=== PATIENT | female | born 1950 | race Caucasian/White ===

== ENCOUNTER 2017-04-24 14:15 | Inpatient (IN) | payer MEDICARE, OTHER ==
[~2017-04-24] VITALS: Ht 162.6 cm; Wt 86.0 kg
[~2017-04-24 14:15] MED LIST: ALBU1.25 IH; ALBU25PO2 MC; CARI350T14 PO; ESOM40CA PO; FLUT1DIS5 IH; GABA600T2 PO; MELO15TA23 PO; ONDA4TAB10 PO; PRED50TA PO; ROFL500T7 PO; TIOT18CA IH; VENL150C PO; mucinex
[2017-04-24] MEDS ORDERED: IPRATRPIUM/ALBUTEROL 0.5/2.5MG 3 ML NEBU. ONE (14:32)
[2017-04-24] MEDS ORDERED: IPRATRPIUM/ALBUTEROL 0.5/2.5MG 3 ML NEBU. NEB ONE ×2 (15:00→15:45)
[2017-04-24 15:39] LABS: BASO # 0.1 x10^3/uL (0.0-0.2); BASO % 1 % (0-3); EOS # 0.4 x10^3/uL (0.0-0.7); EOS % 5 % (0-3); HEMATOCRIT 41.7 % (36.0-47.0); HEMOGLOBIN 14.2 g/dL (12.0-15.5); LYMPH # 1.6 x10^3/uL (1.0-4.8); LYMPH % 22 % (24-48); MEAN CORPUSCULAR HEMOGLOBIN 31 pg (25-35); MEAN CORPUSCULAR HGB CONC 34 g/dL (31-37); MEAN CORPUSCULAR VOLUME 92 fL (79-100); MONO # 0.4 x10^3/uL (0.0-1.1); MONO % 6 % (0-9); NEUT # 4.6 x10^3uL (1.8-7.7); NEUT % 66 % (31-73); PLATELET COUNT 242 x10^3/uL (140-400); RED BLOOD COUNT 4.53 x10^6/uL (3.50-5.40); RED CELL DISTRIBUTION WIDTH 13.6 % (11.5-14.5)
[2017-04-24] MEDS ORDERED: IOHEXOL 300 MG/ML 75 ML VIAL. IV ONE (15:45)
[2017-04-24 16:02] LABS: ALBUMIN 3.9 g/dL (3.4-5.0); CALCIUM 9.9 mg/dL (8.5-10.1); CREATININE 0.8 mg/dL (0.6-1.0); GFR 71.8; TOTAL BILIRUBIN 0.4 mg/dL (0.2-1.0); TOTAL PROTEIN 7.7 g/dL (6.4-8.2)
--- NOTE | 2017-04-24 16:37 | RAD ---
Indication: Rib fracture. Pleural effusion. Technique: CT chest with 75 mL of Omnipaque 300 with multiplanar reformats. Comparison: Previous CT from 05/29/2016 Findings: Neck bases clear. No axillary, mediastinal or hilar adenopathy. Heart is normal in size. No pericardial or pleural effusion. Trace left pleural effusion noted with passive atelectasis of the adjacent lung parenchyma. Diffuse upper lobe predominant emphysema is changes noted. 5 mm nodule seen in the right lower lobe, stable when compared to previous CT from 2011 and is benign. No pneumothorax. Subsegmental atelectasis seen in the bilateral lung bases. Two 5-mm nodules seen in the right lower lobe (series 4 image 50), stable when compared to previous study from 05/29/2016. Visualized sections through the liver, adrenals, pancreas and upper kidneys are within normal limits. Spleen is mildly enlarged measuring 14 cm. Status post cholecystectomy. Note made of splenule. Nondisplaced fracture of the left lateral sixth, seventh, eighth rib noted Impression: 1. Trace left pleural effusion. 2. Pulmonary nodules in the right lower lobe stable when compared to previous CT. However, follow-up CT chest in 6 months recommended. 3. Nondisplaced Left sixth, seventh and eighth rib fractures PQRS Compliance Statement: One or more of the following individualized dose reduction techniques were utilized for this examination: 1. Automated exposure control 2. Adjustment of the mA and/or kV according to patient size 3. Use of iterative reconstruction technique
[2017-04-24 17:42] LABS: BGAS PH 7.41 (7.35-7.45)
--- NOTE | 2017-04-24 17:47 | PHYS DOC ---
Past History Past Medical History: Anxiety, COPD, Fibromyalgia, GERD, High Cholesterol Past Surgical History: Cholecystectomy, Hysterectomy Smoking: Non-smoker Alcohol Use: None Drug Use: None Adult General Chief Complaint Chief Complaint: SHORTNESS OF BREATH HPI HPI 66-year-old female patient brought in by EMS because of shortness of breath and rib pain. Patient has history of COPD on 3 L of home oxygen at night and PRN and had an accidental fall from a standing position on April 19 with pain in left side of her chest. Patient was seen in her primary care physician office the next day and had chest x-ray and treated for chest wall injury. Patient was seen by her primary care physician today because of increasing shortness of breath and pain and had another x-ray that showed pleural effusion. Primary care physician called Dr Allen the on-call hospitalist for direct admission and he recommended patient comes to ER for evaluation. Patient denies fever and chills and complaining of severe pain in her chest that doesn't get better with hydrocodone. Review of Systems Review of Systems Constitutional: Denies fever or chills [] Eyes: Denies change in visual acuity, redness, or eye pain [] HENT: Denies nasal congestion or sore throat [] Respiratory: Reports cough and shortness of breath [] Cardiovascular: No additional information not addressed in HPI [] GI: Denies abdominal pain, nausea, vomiting, bloody stools or diarrhea [] : Denies dysuria or hematuria [] Musculoskeletal: Denies back pain or joint pain [] Integument: Denies rash or skin lesions [] Neurologic: Denies headache, focal weakness or sensory changes [] Endocrine: Denies polyuria or polydipsia [] All other systems were reviewed and found to be within normal limits, except as documented in this note. Current Medications Current Medications Current Medications Medications (Trade) Dose Ordered Sig/Tereso Start Time Stop Time Status Last Admin Dose Admin Albuterol/ Ipratropium (Duoneb) 3 ml 1X ONCE 04/24/17 15:45 04/24/17 15:46 DC Fentanyl Citrate (Fentanyl 2ml Vial) 50 mcg 1X ONCE 04/24/17 15:50 04/24/17 15:51 DC 04/24/17 15:43 50 MCG Iohexol (Omnipaque 300 Mg/ml) 75 ml 1X ONCE 04/24/17 15:45 04/24/17 15:54 DC 04/24/17 15:50 75 ML Allergies Allergies Allergies Coded Allergies Type Severity Reaction Last Updated Verified No Known Drug Allergies 06/10/13 No Physical Exam Physical Exam General:milddistress, non-toxic appearance. [] HENT: Normocephalic, atraumatic, bilateral external ears normal, oropharynx moist, no oral exudates, nose normal. [] Eyes: PERRLA, EOMI, conjunctiva normal, no discharge. [] Neck: Normal range of motion, no tenderness, supple, no stridor. [] Cardiovascular:Heart rate regular rhythm, no murmur [] Lungs & Thorax: Decrease of breath sounds with mild rhonchi, left side chest wall tenderness without crepitation or subcutaneous emphysema, Abdomen: Bowel sounds normal, soft, no tenderness, no masses, no pulsatile masses. [] Skin: Warm, dry, no erythema, no rash. [] Back: No tenderness, no CVA tenderness. [] Extremities: No tenderness, no cyanosis, no clubbing, ROM intact, no edema. [] Neurologic: Alert and oriented X 3, normal motor function, normal sensory function, no focal deficits noted. [] Psychologic: Affect normal, judgement normal, mood normal. [] Current Patient Data Vital Signs Vital Signs Date Time Temp Pulse Resp B/P (MAP) Pulse Ox O2 Delivery O2 Flow Rate FiO2 04/24/17 15:43 20 95 04/24/17 14:35 Nasal Cannula 2.0 Lab Results Laboratory Tests Test 04/24/17 14:50 White Blood Count 7.0 x10^3/uL (4.0-11.0) Red Blood Count 4.53 x10^6/uL (3.50-5.40) Hemoglobin 14.2 g/dL (12.0-15.5) Hematocrit 41.7 % (36.0-47.0) Mean Corpuscular Volume 92 fL (79-100) Mean Corpuscular Hemoglobin 31 pg (25-35) Mean Corpuscular Hemoglobin Concent 34 g/dL (31-37) Red Cell Distribution Width 13.6 % (11.5-14.5) Platelet Count 242 x10^3/uL (140-400) Neutrophils (%) (Auto) 66 % (31-73) Lymphocytes (%) (Auto) 22 % (24-48) L Monocytes (%) (Auto) 6 % (0-9) Eosinophils (%) (Auto) 5 % (0-3) H Basophils (%) (Auto) 1 % (0-3) Neutrophils # (Auto) 4.6 x10^3uL (1.8-7.7) Lymphocytes # (Auto) 1.6 x10^3/uL (1.0-4.8) Monocytes # (Auto) 0.4 x10^3/uL (0.0-1.1) Eosinophils # (Auto) 0.4 x10^3/uL (0.0-0.7) Basophils # (Auto) 0.1 x10^3/uL (0.0-0.2) Sodium Level 143 mmol/L (136-145) Potassium Level 4.0 mmol/L (3.5-5.1) Chloride Level 100 mmol/L (98-107) Carbon Dioxide Level 35 mmol/L (21-32) H Anion Gap 8 (6-14) Blood Urea Nitrogen 14 mg/dL (7-20) Creatinine 0.8 mg/dL (0.6-1.0) Estimated GFR (Cockcroft-Gault) 71.8 BUN/Creatinine Ratio 18 (6-20) Glucose Level 103 mg/dL (70-99) H Lactic Acid Level 1.6 mmol/L (0.4-2.0) Calcium Level 9.9 mg/dL (8.5-10.1) Total Bilirubin 0.4 mg/dL (0.2-1.0) Aspartate Amino Transferase (AST) 27 U/L (15-37) Alanine Aminotransferase (ALT) 28 U/L (14-59) Alkaline Phosphatase 99 U/L (46-116) Creatine Kinase 129 U/L (26-192) Creatine Kinase MB (Mass) 0.7 ng/mL (0.0-3.6) Creatine Kinase MB Relative Index 0.5 % (0-4) Troponin I Quantitative < 0.017 ng/mL (0-0.055) JS-Vbl-N-Type Natriuretic Peptide 92 pg/mL (0-124) Total Protein 7.7 g/dL (6.4-8.2) Albumin 3.9 g/dL (3.4-5.0) Albumin/Globulin Ratio 1.0 (1.0-1.7) EKG EKG [] Radiology/Procedures Radiology/Procedures [] Course & Med Decision Making Course & Med Decision Making Pertinent Labs and Imaging studies reviewed. (See chart for details) Evaluation of patient in ER showed 66-year-old male patient with history of COPD on home oxygen and a fall with rib fracture centrum primary care physician office because of pleural effusion. Patient had chest wall tenderness and decrease of air movement in bilateral lung. CT of chest showed nondisplaced fracture of left rib #6 and 7 and 8 with a small pleural effusion. ABG was unremarkable. Dr. Allen the on-call hospitalist was informed at 1743 and agreed with plan of care and admission of the patient. [] Dragon Disclaimer Dragon Disclaimer This electronic medical record was generated, in whole or in part, using a voice recognition dictation system. Departure Departure: Impression: Primary Impression: Multiple fractures of ribs of left side Additional Impressions: Dyspnea History of COPD Disposition: 09 ADMITTED INPATIENT (At 1743) Admitting Physician: Adela Allen Condition: IMPROVED Referrals: KEISHA PRICE DO (PCP) Problem Qualifiers PAT CLARKE MD Apr 24, 2017 17:47
[2017-04-24] MEDS ORDERED: methylPREDNISolone SOD SUCC PF 125 MG/2 ML VIAL. IV ONE (18:00)
[2017-04-24 21:14] VITALS: BP 140/70
[2017-04-24 21:28] VITALS: BP 140/70
[2017-04-24] MEDS: LIDOCAINE (700MG/PATCH) PATCH. TD SCH (21:49)
[2017-04-24] MEDS: oxyCODONE IR 5 MG TABLET PO PRN (21:50)
[2017-04-24 23:21] VITALS: BP 131/82
[2017-04-25] MEDS ORDERED: MELO15TA23 PO (01:16)
[2017-04-25] MEDS ORDERED: VENL75TA PO ×2 (01:16)
[2017-04-25] MEDS ORDERED: HYDR-2758 PO (01:16)
[2017-04-25] MEDS ORDERED: HYDR200T5 PO (01:16)
[2017-04-25] MEDS ORDERED: ALBU90AE IH (01:16)
[2017-04-25] MEDS ORDERED: FLUT1DIS5 IH (01:16)
[2017-04-25] MEDS ORDERED: CALC500T30 PO (01:16)
[2017-04-25] MEDS ORDERED: ROFL500T7 PO (01:16)
[2017-04-25] MEDS ORDERED: OMEG1CAP6 PO (01:16)
[2017-04-25] MEDS ORDERED: ALBU2.5V5 NEB (01:16)
[2017-04-25] MEDS ORDERED: CARI350T PO ×2 (01:16)
[2017-04-25] MEDS ORDERED: MONT10TA9 PO (01:16)
[2017-04-25] MEDS ORDERED: GUAI600T47 PO (01:16)
[2017-04-25] MEDS ORDERED: TIOT18CA IH (01:16)
[2017-04-25] MEDS ORDERED: GABA-586 PO (01:16)
[2017-04-25] MEDS ORDERED: PANT40TA3 PO (01:16)
[2017-04-25] MEDS ORDERED: AMIT25TA PO (01:16)
[2017-04-25] MEDS: oxyCODONE IR 5 MG TABLET PO PRN ×5 (01:54→18:42)
[2017-04-25 05:05] VITALS: BP 108/72
[2017-04-25 06:40] LABS: HEMATOCRIT 40.6 % (36.0-47.0); RED BLOOD COUNT 4.45 x10^6/uL (3.50-5.40); RED CELL DISTRIBUTION WIDTH 13.2 % (11.5-14.5); WHITE BLOOD COUNT 6.6 x10^3/uL (4.0-11.0)
[2017-04-25] MEDS ORDERED: ONDANSETRON ODT 4 MG TAB.RAPDIS PO PRN (06:45)
[2017-04-25] MEDS ORDERED: NON FORMULARY ITEM (Albuterol Sulfate (Proair Respiclick) 1 PUFF) IH PRN (06:45)
[2017-04-25 06:51] LABS: ALBUMIN 3.6 g/dL (3.4-5.0); ALBUMIN/GLOBULIN RATIO 0.9 (1.0-1.7); CALCIUM 9.8 mg/dL (8.5-10.1); CREATININE 0.7 mg/dL (0.6-1.0); GFR 83.7; POTASSIUM 4.2 mmol/L (3.5-5.1); TOTAL BILIRUBIN 0.3 mg/dL (0.2-1.0); TOTAL PROTEIN 7.4 g/dL (6.4-8.2)
[2017-04-25] MEDS ORDERED: ALBUTEROL SULFATE 2.5 MG/3 ML NEBU. NEB PRN (07:30)
[2017-04-25] MEDS: OMEGA-3 FATTY ACIDS/FISH OIL 1,000 MG CAPSULE. PO SCH ×3 (08:23→20:29)
[2017-04-25] MEDS: CALCIUM CARBONATE 500 MG TABLET PO SCH (08:24)
[2017-04-25] MEDS: PANTOPRAZOLE 40 MG TABLET. PO SCH (08:24)
[2017-04-25] MEDS: HYDROXYCHLOROQUINE 200 MG TABLET PO SCH ×2 (08:25→20:32)
[2017-04-25] MEDS: MONTELUKAST 10 MG TABLET. PO SCH (08:25)
[2017-04-25] MEDS: AMITRIPTYLINE HCL 25 MG TABLET PO SCH ×3 (08:26→20:30)
[2017-04-25] MEDS: ROFLUMILAST 500 MCG TABLET PO SCH (08:27)
[2017-04-25] MEDS: VENLAFAXINE 75 MG TABLET. PO SCH ×2 (08:28→20:29)
[2017-04-25] MEDS ORDERED: NON FORMULARY ITEM (Tiotropium Bromide (Spiriva) 18 MCG) IH SCH (09:00)
[2017-04-25] MEDS ORDERED: GABAPENTIN 300 MG CAPSULE. PO SCH ×2 (09:00→13:00)
[2017-04-25] MEDS ORDERED: CARISOPRODOL 350 MG TABLET PO SCH (09:00)
[2017-04-25] MEDS ORDERED: NON FORMULARY ITEM (Fluticasone/Salmeterol (Advair 500-50 Diskus) 1 PUFF) IH SCH (09:00)
[2017-04-25] MEDS ORDERED: MELOXICAM 15 MG TABLET. PO SCH (09:00)
[2017-04-25] MEDS: BUDESONIDE 0.5 MG/2 ML NEBU NEB SCH ×2 (10:15→21:21)
[2017-04-25] MEDS: IPRATRPIUM/ALBUTEROL 0.5/2.5MG 3 ML NEBU. NEB SCH ×4 (10:15→21:21)
[2017-04-25 10:27] VITALS: BP 132/87
[2017-04-25] MEDS: HYDROcodone/APAP 5/325MG 1 TAB TABLET PO PRN (12:21)
[2017-04-25] MEDS ORDERED: GABAPENTIN 100 MG CAPSULE. PO SCH (13:00)
[2017-04-25 14:34] VITALS: BP 123/67
--- NOTE | 2017-04-25 15:46 | HP ---
ADMIT DATE: 04/24/2017 HISTORY OF PRESENT ILLNESS: The patient is a 66-year-old female patient, who lives with her and who apparently fell about a week ago at home. She was seen by her primary care physician about 6 days ago and an x-ray was done and on Sunday she was told to make an appointment to see her primary care physician. She saw her yesterday and apparently her x-ray showed that she has left side rib fracture as well as what seems to be pleural effusion versus hemothorax. The patient was complaining of severe pain and her primary care physician contacted me stating that she is having more shortness of breath and she seemed to be somewhat lethargic and therefore, I recommended that the patient should be seen at the Emergency Room first to see whether she is retaining carbon dioxide and she might require intubation. She was actually evaluated there and her blood gases showed that her pH was normal at 7.41, pCO2 of 53, pO2 of 71, and decision was made to admit her for pain control. PAST MEDICAL HISTORY: Significant for chronic obstructive pulmonary disease, bronchial asthma, fibromyalgia, and nephrolithiasis. PAST SURGICAL HISTORY: Significant for arthroscopic surgery of left knee, tonsillectomy, cholecystectomy, total abdominal hysterectomy and bilateral salpingo-oophorectomy, colonoscopy and polypectomy. ALLERGIES: She has no known drug allergies. MEDICATIONS: She is currently on following medication: Albuterol sulfate 1 puff every 4 to 6 hours, albuterol sulfate 2.5 mg 3 mL by nebulizer every 4 to 6 hours, amitriptyline 25 mg 3 times a day, calcium carbonate 500 mg 3 times a day, Soma 350 mg daily and 700 mg at bedtime. She is on Advair Diskus 500/50 one puff twice a day, guaifenesin 1200 mg twice a day, hydrocodone/APAP 5/325 one tablet every 6 hours. She is on hydroxychloroquine sulfate 200 mg twice a day, Meloxicam 50 mg daily, montelukast sodium 10 mg daily, omega-3 fatty acid one p.o. t.i.d., ondansetron 4 mg p.o. q.6 hourly p.r.n., Protonix 40 mg daily, Daliresp 500 mcg tablet once a day, Spiriva HandiHaler 1 inhalation once a day, venlafaxine 150 mg once a day, 75 mg p.o. at bedtime. FAMILY HISTORY: She has 1 brother and 2 sisters younger and healthy. Her mother is still alive at the age of 87, has hypertension. She does not know her biological father. SOCIAL HISTORY: She is , has a daughter and a son. She is an ex-smoker, quit in 2002. She does drink alcohol or use any recreational drugs. 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 REVIEW OF SYSTEMS: The patient denied any blurring of vision, cataract, glaucoma or macular degeneration. Denied any earache, tinnitus or sensorineural deafness. Denied any nosebleeds, stuffy nose or postnasal drip. Denied any sore throat, sore tongue, toothache, hoarseness of voice or difficulty swallowing. Denied any nausea, vomiting, diarrhea or constipation. Denied any hematemesis, melena or hematochezia. Denied any dysuria, frequency or hematuria. Did complain of chest pain. She normally has shortness of breath, but denied any orthopnea, paroxysmal nocturnal dyspnea. Denied any cough, phlegm or hemoptysis. Denied any chills, rigors or fever. Denied any dizziness, lightheadedness, or vertigo. PHYSICAL EXAMINATION: GENERAL: On arrival to the Emergency Room, she looked well and was no apparent respiratory distress. She was pale, but no jaundice, cyanosis, or thyromegaly. No jugular venous distention. No limb edema. VITAL SIGNS: Her heart rate was 95, blood pressure was 138/73, temperature was 98.5, respiratory rate was 22 and oxygen saturation was 97% on 3 liters of oxygen. HEAD, EYES, EARS, NOSE AND THROAT: Showed normocephalic, atraumatic. NECK: Supple. HEART: Showed normal first and second sounds. No gallop, rub or murmur. CHEST: Clear to auscultation. No crepitation or rhonchi. ABDOMEN: Distended, soft, nontender. No guarding or rigidity. No organomegaly. All hernial orifice intact. Bowel sounds normal. NEUROLOGIC: She was awake, alert, responding appropriately. Cranial nerves intact. EXTREMITIES: She moves extremities without difficulty. She ambulates without assistance or assistive devices. LABORATORY DATA: On arrival to the Emergency Room showed a pH of 7.41, pCO2 of 53, pO2 of 71, bicarbonate 34, and oxygen saturation was 94% on FiO2 of 32%. Her white cell count was 7000, hemoglobin 14, hematocrit 42, MCV 92, and platelet count 242,000 with normal manual differential. Her chemistry showed a serum sodium 143, potassium 4, chloride 100, bicarbonate 35, anion gap of 8, BUN 14, creatinine 0.8, estimated GFR was 71 mL per minute. Her glucose was 103, calcium was 9.9. Total bilirubin, AST, ALT, alkaline phosphatase were normal. Her total protein was 7.7, albumin was 3.9. She did have CT scan of the chest with contrast, which showed that the patient has trace left pleural effusion, pulmonary nodule in the right lower lobe, stable when compared to previous CT scan. However, followup CT scan in 6 months is recommended. She has nondisplaced left 6th, 7th and 8th rib fractures. IMPRESSION: In summary, this is a 66-year-old female patient, who was admitted with fall, severe left-sided chest pain due to fracture of her left 6th, 7th, and 8th ribs. She has also COPD/bronchial asthma as well as fibromyalgia. PLAN: To continue with all her medication. Continue with pain management. We added Lidoderm patch. We will continue with SCDs for DVT prophylaxis. I will add also incentive spirometry and follow her closely. CHRISTINA ALAS MD DR: STACY/manjinder JOB#: [id number] / [id number]
[2017-04-25 19:36] VITALS: BP 103/62
[2017-04-25] MEDS: LIDOCAINE (700MG/PATCH) PATCH. TD SCH (20:29)
[2017-04-25] MEDS: MELOXICAM 15 MG TABLET. PO SCH (20:30)
[2017-04-25] MEDS: CARISOPRODOL 350 MG TABLET PO SCH (20:30)
[2017-04-25] MEDS: GABAPENTIN 300 MG CAPSULE. PO SCH ×2 (20:32→21:00)
[2017-04-25] MEDS ORDERED: HYDROmorphone PF 1 MG/ML DISP.SYRIN IV PRN (21:30)
[2017-04-25 22:00] VITALS: BP 111/75
--- NOTE | 2017-04-26 01:56 | PN ---
DATE: 04/25/2017 SUBJECTIVE: The patient is sitting propped up in bed, in no apparent distress. She continued to be complaining of pain, particularly with the movement. She is obviously in much less pain when she is in bed; however, she is able to ambulate and has been able to walk to the bathroom and back. The Lidoderm patch apparently is helping pain. I did start her on oxycodone and continued with all her other medications. PHYSICAL EXAMINATION: GENERAL: When I examined her this afternoon, she looked well and was clearly in no apparent respiratory distress, pale, but no jaundice, cyanosis, or thyromegaly. No jugular venous distension. No limb edema. VITAL SIGNS: Her heart rate was 94, blood pressure was 125/79, temperature was 98.5, respiratory rate was 18 and oxygen saturation was 96% on 3 liters of oxygen by nasal cannula. HEAD, EYES, EARS, NOSE AND THROAT: Showed normocephalic, atraumatic. NECK: Supple. HEART: Showed normal first and second heart sounds with no gallop, rub or murmur. CHEST: Clear to auscultation. No crepitation or rhonchi. ABDOMEN: Distended, soft, nontender. No guarding or rigidity. No organomegaly. Hernial orifice intact. Bowel sounds normal. NEUROLOGIC: She was awake, alert, responding appropriately. Cranial nerves intact. She moves extremities without difficulty. In fact, she was able to ambulate from the bed to the bathroom and back. Her intake over the last 24 hours was incompletely recorded. LABORATORY DATA: This morning showed a serum sodium 139, potassium 4.2, chloride 100, bicarbonate 31, anion gap of 8, BUN 16, creatinine 0.7, estimated GFR was 84 mL per minute. Her glucose was 142, calcium was 9.8. Total bilirubin, AST, ALT, alkaline phosphatase were normal. Total protein was 7.4, albumin 3.6. White cell count was 6600, hemoglobin 14, hematocrit 40, MCV 91, and platelet count 271,000. PLAN To continue with all her current medications. Continue with pain management. Continue with physical and occupational therapy. CHRISTINA ALAS MD DR: STACY/manjinder JOB#: [id number] / [id number]
[2017-04-26] MEDS: oxyCODONE IR 5 MG TABLET PO PRN ×3 (02:15→16:10)
[2017-04-26 02:16] VITALS: BP 113/77
[2017-04-26] MEDS: HYDROcodone/APAP 5/325MG 1 TAB TABLET PO PRN (05:19)
[2017-04-26 05:40] VITALS: BP 137/75
[2017-04-26] MEDS: IPRATRPIUM/ALBUTEROL 0.5/2.5MG 3 ML NEBU. NEB SCH ×4 (05:51→20:44)
[2017-04-26] MEDS: PANTOPRAZOLE 40 MG TABLET. PO SCH (07:42)
[2017-04-26 10:33] VITALS: BP 113/66
[2017-04-26] MEDS: BUDESONIDE 0.5 MG/2 ML NEBU NEB SCH ×2 (10:48→20:44)
[2017-04-26] MEDS: CALCIUM CARBONATE 500 MG TABLET PO SCH (11:29)
[2017-04-26] MEDS: HYDROXYCHLOROQUINE 200 MG TABLET PO SCH ×2 (11:29→21:03)
[2017-04-26] MEDS: VENLAFAXINE 75 MG TABLET. PO SCH ×2 (11:30→20:50)
[2017-04-26] MEDS: MONTELUKAST 10 MG TABLET. PO SCH (11:30)
[2017-04-26] MEDS: GABAPENTIN 300 MG CAPSULE. PO SCH ×4 (11:30→20:48)
[2017-04-26] MEDS: OMEGA-3 FATTY ACIDS/FISH OIL 1,000 MG CAPSULE. PO SCH ×3 (11:30→20:50)
[2017-04-26] MEDS: AMITRIPTYLINE HCL 25 MG TABLET PO SCH ×3 (11:30→20:50)
[2017-04-26] MEDS: ROFLUMILAST 500 MCG TABLET PO SCH (11:31)
[2017-04-26 14:37] VITALS: BP 110/67
[2017-04-26 17:59] VITALS: BP 121/73
[2017-04-26] MEDS: oxyCODONE ER 10 MG TAB.ER.12H PO SCH (20:49)
[2017-04-26] MEDS: CARISOPRODOL 350 MG TABLET PO SCH (20:50)
[2017-04-26] MEDS: MELOXICAM 15 MG TABLET. PO SCH (20:52)
[2017-04-26 21:00] VITALS: BP 96/54
[2017-04-26] MEDS ORDERED: LIDOCAINE (700MG/PATCH) PATCH. TD SCH (21:00)
--- NOTE | 2017-04-26 23:56 | PN ---
DATE: 04/26/2017 SUBJECTIVE: The patient is resting slightly propped up in bed, in no apparent distress. She continued to complain of severe left-sided chest pain, although she manages to walk to the bathroom. PHYSICAL EXAMINATION: GENERAL: When I examined her, she looked pale, but no jaundice, cyanosis, or thyromegaly. No jugular venous distension. No limb edema. VITAL SIGNS: Her heart rate was 99, blood pressure was 110/67, temperature was 98.4, respiratory rate 20, and oxygen saturation was 92% on 3-1/2 liters of oxygen. The rest of clinical examination is unremarkable and has not really changed. Her intake was 2400, no output was recorded. LABORATORY WORK: As of this morning showed a BUN of 16, creatinine 0.7. Her white cell count was 6600, hemoglobin 14, hematocrit 41, MCV 91, and platelet count 271,000. ASSESSMENT: 1. Fall with left 7th, 8th, 9th rib fracture. 2. Chronic obstructive pulmonary disease/bronchial asthma. 3. Fibromyalgia. 4. Osteoporosis and osteoarthritis. PLAN: My plan is to start her on OxyContin 10 mg twice a day and simplify the regimen, give only OxyIR 5 mg every 3 hours as needed for pain and increase also her on Neurontin to 600 mg 4 times a day. We will obviously have to be careful and hold the medication if she is lethargic, unresponsive or unconscious. We will continue obviously with physical and occupational therapy. CHRISTINA ALAS MD DR: STACY/manjinder JOB#: [id number] / [id number]
[2017-04-27] MEDS: oxyCODONE IR 5 MG TABLET PO PRN ×4 (05:28→17:31)
[2017-04-27 05:29] VITALS: BP 111/72
[2017-04-27] MEDS: IPRATRPIUM/ALBUTEROL 0.5/2.5MG 3 ML NEBU. NEB SCH ×3 (05:43→15:18)
[2017-04-27 06:37] LABS: HEMATOCRIT 36.7 % (36.0-47.0); HEMOGLOBIN 12.7 g/dL (12.0-15.5); RED BLOOD COUNT 3.94 x10^6/uL (3.50-5.40); RED CELL DISTRIBUTION WIDTH 13.5 % (11.5-14.5)
[2017-04-27 06:42] LABS: ALBUMIN 3.3 g/dL (3.4-5.0); CALCIUM 8.7 mg/dL (8.5-10.1); CREATININE 0.8 mg/dL (0.6-1.0); GFR 71.8; POTASSIUM 4.2 mmol/L (3.5-5.1); TOTAL BILIRUBIN 0.3 mg/dL (0.2-1.0); TOTAL PROTEIN 6.5 g/dL (6.4-8.2)
[2017-04-27] MEDS: PANTOPRAZOLE 40 MG TABLET. PO SCH (07:56)
[2017-04-27] MEDS: GABAPENTIN 300 MG CAPSULE. PO SCH ×3 (08:20→17:30)
[2017-04-27] MEDS: OMEGA-3 FATTY ACIDS/FISH OIL 1,000 MG CAPSULE. PO SCH ×2 (08:20→13:31)
[2017-04-27] MEDS: HYDROXYCHLOROQUINE 200 MG TABLET PO SCH (08:21)
[2017-04-27] MEDS: CALCIUM CARBONATE 500 MG TABLET PO SCH (08:21)
[2017-04-27] MEDS: MONTELUKAST 10 MG TABLET. PO SCH (08:21)
[2017-04-27] MEDS: oxyCODONE ER 10 MG TAB.ER.12H PO SCH (08:21)
[2017-04-27] MEDS: ROFLUMILAST 500 MCG TABLET PO SCH (08:22)
[2017-04-27] MEDS: AMITRIPTYLINE HCL 25 MG TABLET PO SCH ×2 (08:22→13:31)
[2017-04-27] MEDS: VENLAFAXINE 75 MG TABLET. PO SCH (08:22)
[2017-04-27] MEDS: BUDESONIDE 0.5 MG/2 ML NEBU NEB SCH (09:53)
[2017-04-27 10:17] VITALS: BP 110/58
[2017-04-27 15:55] VITALS: BP 100/53
[2017-04-27] MEDS ORDERED: OXYC5TAB95 PO (18:40)
[2017-04-27] MEDS ORDERED: GABA600T2 PO (18:40)
[2017-04-27] MEDS ORDERED: OXYC10TA45 PO (18:40)
[2017-04-27] MEDS ORDERED: LIDO700A39 TP (18:42)
--- NOTE | 2017-04-28 00:02 | DS ---
DATE OF DISCHARGE: 04/27/2017 DISCHARGE TO SWING BED HOSPITAL COURSE: The patient is a 66-year-old female patient who was originally admitted after she fell at home sustaining left 6th, 7th, and 8th rib fracture and was admitted for pain management. We have increased her pain medication to OxyContin 10 mg twice a day, OxyIR 5 mg every 3 hours as needed, and increased her Neurontin to 600 mg 4 times a day; however, the patient continued to complain of pain particularly on movement and therefore, a decision was made to admit her to swing bed to continue with pain management and to start the process of physical and occupational therapy to monitor her closely given that she has COPD and she has multiple narcotics that might push her into hypercapnic respiratory failure. PHYSICAL EXAMINATION: GENERAL: When I saw her this afternoon, she looked well and was clearly in no apparent respiratory distress, pale, but no jaundice, cyanosis, or thyromegaly. No jugular venous distension. No limb edema. VITAL SIGNS: Her heart rate was 91, blood pressure 100/53, temperature was 98, respiratory rate 20, and oxygen saturation was 97% on 2 liters of oxygen by nasal cannula. HEAD, EYES, EARS, NOSE AND THROAT: Examination showed normocephalic, atraumatic. NECK: Supple. HEART: Showed normal first and second heart sounds. No gallop, rub, or murmur. CHEST: Clear to auscultation. No crepitation or rhonchi. ABDOMEN: Distended, soft, nontender. No guarding or rigidity. No organomegaly. Hernial orifices intact. Bowel sounds normal. NEUROLOGICAL: She was awake, alert, oriented in time, place and person. Cranial nerves are intact. She moves extremities without difficulty though the pain is obviously severe with change in position or movement. Her intake over the last 24-hour was 1440 and output not recorded. LABORATORY DATA: Her lab work as of this morning showed a white cell count of 8000, hemoglobin 12.7, hematocrit 36, MCV 93, and platelet count of 197,000. Her chemistry this morning showed serum sodium of 141, potassium 4.2, chloride 101, bicarbonate 34, anion gap of 6, BUN 16, creatinine 0.8, estimated GFR was 72 mL per minute. Her glucose was 101. Calcium was 8.7. Total bilirubin, AST, ALT, alkaline phosphatase were normal. Total protein was 6.5, albumin 3.3. DISCHARGE MEDICATIONS: She was discharged to swing bed to continue on following medication: OxyContin 10 mg twice a day and then oxycodone 5 mg every 3 hours as needed. Her Neurontin was increased to 600 mg 4 times a day, albuterol sulfate 1 puff every 4 hours, albuterol sulfate via nebulizer solution every 4 hours, amitriptyline 25 mg 3 times a day, calcium carbonate 500 mg once a day, Soma 350 mg daily, Soma 700 at bedtime, Flonase, Advair Diskus 500/50 one puff twice a day, gabapentin 600 mg 4 times a day, Mucinex 1200 mg twice a day, hydroxychloroquine 200 mg once a day, meloxicam 15 mg once a day, Singulair 10 mg once a day, omega-3 fatty acids 1 tablet at bedtime, ondansetron 4 mg every 6 hours, Protonix 40 mg once a day, and Daliresp 500 mcg once a day, tiotropium bromide, Spiriva HandiHaler 1 inhalation once a day, venlafaxine 150 mg daily and 75 at bedtime. FINAL DISCHARGE DIAGNOSES: 1. Fall with left 6th, 7th, and 8th rib fracture. 2. Chronic obstructive pulmonary disease exacerbation. 3. Bronchial asthma. 4. Fibromyalgia. 5. Osteoporosis and osteoarthritis. CHRISTINA ALAS MD DR: STACY/manjinder JOB#: [id number] / [id number]
== END 2017-04-27 18:33 | disposition swing bed (61) | DRG 183 ==
LOC: ER 14:15 → 1 SOUTH 18:00 → ICU 04-26 18:10
PROVIDERS: ADMIT Internal Medicine; ATTEND Internal Medicine
DX: S22.42XA Multiple fractures of ribs, left side, initial encounter for closed fracture (principal); J96.20 Acute and chronic respiratory failure, unspecified whether with hypoxia or hypercapnia; Z99.81 Dependence on supplemental oxygen; J44.1 Chronic obstructive pulmonary disease with (acute) exacerbation; K21.9 Gastro-esophageal reflux disease without esophagitis; M19.90 Unspecified osteoarthritis, unspecified site; M79.7 Fibromyalgia; J45.998 Other asthma; M81.0 Age-related osteoporosis without current pathological fracture; F41.9 Anxiety disorder, unspecified; Z82.49 Family history of ischemic heart disease and other diseases of the circulatory system; Z87.442 Personal history of urinary calculi; Z87.891 Personal history of nicotine dependence; Z90.710 Acquired absence of both cervix and uterus; Z90.49 Acquired absence of other specified parts of digestive tract; Z90.722 Acquired absence of ovaries, bilateral; W18.39XA Other fall on same level, initial encounter; Y93.89 Activity, other specified; Y92.89 Other specified places as the place of occurrence of the external cause; Y99.8 Other external cause status
CPT/HCPCS: 36415; 71260; 80053; 82553; 82803; 83605; 83880; 84484; 85025; 85027; 94640; 94760; 96374; 96375; G0238; J1170; J2930; J3010; J7620; J7626; Q9967; 97530; 99285-25

== ENCOUNTER 2017-04-27 16:07 | Inpatient (IN) | payer MEDICARE, OTHER ==
[~2017-04-27] VITALS: Ht 162.6 cm; Wt 90.3 kg
[~2017-04-27 16:07] MED LIST changes: +ALBU2.5V5 NEB; +ALBU90AE IH; +AMIT25TA PO; +CALC500T30 PO; +CARI350T PO; +GABA-586 PO; +GUAI600T47 PO; +HYDR-2758 PO; +HYDR200T5 PO; +MONT10TA9 PO; +OMEG1CAP6 PO; +PANT40TA3 PO; +VENL75TA PO
[2017-04-27] MEDS ORDERED: OXYC10TA45 PO (18:40)
[2017-04-27] MEDS ORDERED: OXYC5TAB95 PO (18:40)
[2017-04-27] MEDS ORDERED: GABA600T2 PO (18:40)
[2017-04-27] MEDS ORDERED: LIDO700A39 TP (18:42)
[2017-04-27 19:00] VITALS: BP 112/78
[2017-04-27] MEDS ORDERED: ALBUTEROL SULFATE 2.5 MG/3 ML NEBU. NEB PRN (19:00)
[2017-04-27] MEDS ORDERED: ONDANSETRON ODT 4 MG TAB.RAPDIS PO PRN (19:00)
[2017-04-27] MEDS ORDERED: NON FORMULARY ITEM (Albuterol Sulfate (Proair Respiclick) 1 PUFF) IH PRN (19:00)
[2017-04-27] MEDS: oxyCODONE IR 5 MG TABLET PO PRN (19:48)
[2017-04-27] MEDS: HYDROXYCHLOROQUINE 200 MG TABLET PO SCH (20:41)
[2017-04-27] MEDS: GABAPENTIN 300 MG CAPSULE. PO SCH (20:41)
[2017-04-27] MEDS: DOCUSATE SODIUM 100 MG CAPSULE PO SCH (20:41)
[2017-04-27] MEDS: VENLAFAXINE 75 MG TABLET. PO SCH (20:42)
[2017-04-27] MEDS: MELOXICAM 15 MG TABLET. PO SCH (20:42)
[2017-04-27] MEDS: CARISOPRODOL 350 MG TABLET PO SCH (20:42)
[2017-04-27] MEDS: AMITRIPTYLINE HCL 25 MG TABLET PO SCH (20:42)
[2017-04-27] MEDS: oxyCODONE ER 10 MG TAB.ER.12H PO SCH (20:42)
[2017-04-27] MEDS: IPRATRPIUM/ALBUTEROL 0.5/2.5MG 3 ML NEBU. NEB SCH (20:43)
[2017-04-27] MEDS: BUDESONIDE 0.5 MG/2 ML NEBU NEB SCH (20:43)
[2017-04-27] MEDS: OMEGA-3 FATTY ACIDS/FISH OIL 1,000 MG CAPSULE. PO SCH (20:43)
[2017-04-27] MEDS: LIDOCAINE (700MG/PATCH) PATCH. TP SCH (20:43)
[2017-04-27] MEDS ORDERED: NON FORMULARY ITEM (Fluticasone/Salmeterol (Advair 500-50 Diskus) 1 PUFF) IH SCH (21:00)
[2017-04-28] MEDS: IPRATRPIUM/ALBUTEROL 0.5/2.5MG 3 ML NEBU. NEB SCH ×4 (05:35→20:49)
[2017-04-28] MEDS: oxyCODONE IR 5 MG TABLET PO PRN ×2 (05:58→14:04)
[2017-04-28 06:05] VITALS: BP 154/92
[2017-04-28] MEDS ORDERED: NON FORMULARY ITEM (Tiotropium Bromide (Spiriva) 18 MCG) IH SCH (09:00)
[2017-04-28] MEDS: DOCUSATE SODIUM 100 MG CAPSULE PO SCH ×2 (09:32→19:58)
[2017-04-28] MEDS: OMEGA-3 FATTY ACIDS/FISH OIL 1,000 MG CAPSULE. PO SCH ×3 (09:32→19:58)
[2017-04-28] MEDS: GABAPENTIN 300 MG CAPSULE. PO SCH ×4 (09:32→19:58)
[2017-04-28] MEDS: oxyCODONE ER 10 MG TAB.ER.12H PO SCH ×2 (09:33→19:58)
[2017-04-28] MEDS: PANTOPRAZOLE 40 MG TABLET. PO SCH (09:33)
[2017-04-28] MEDS: MONTELUKAST 10 MG TABLET. PO SCH (09:33)
[2017-04-28] MEDS: CALCIUM CARBONATE 500 MG TABLET PO SCH (09:33)
[2017-04-28] MEDS: AMITRIPTYLINE HCL 25 MG TABLET PO SCH ×3 (09:34→19:58)
[2017-04-28] MEDS: HYDROXYCHLOROQUINE 200 MG TABLET PO SCH ×2 (09:34→19:57)
[2017-04-28] MEDS: ROFLUMILAST 500 MCG TABLET PO SCH (09:35)
[2017-04-28] MEDS: VENLAFAXINE 75 MG TABLET. PO SCH ×2 (09:35→19:59)
[2017-04-28] MEDS: BUDESONIDE 0.5 MG/2 ML NEBU NEB SCH ×2 (10:45→20:49)
[2017-04-28 18:09] VITALS: BP 120/74
[2017-04-28] MEDS: LIDOCAINE (700MG/PATCH) PATCH. TP SCH (19:57)
[2017-04-28] MEDS: MELOXICAM 15 MG TABLET. PO SCH (19:58)
[2017-04-28] MEDS: CARISOPRODOL 350 MG TABLET PO SCH (19:58)
[2017-04-29] MEDS: oxyCODONE IR 5 MG TABLET PO PRN ×3 (04:28→15:58)
[2017-04-29 05:25] VITALS: BP 119/74
[2017-04-29] MEDS: IPRATRPIUM/ALBUTEROL 0.5/2.5MG 3 ML NEBU. NEB SCH ×4 (06:17→21:03)
[2017-04-29] MEDS: GABAPENTIN 300 MG CAPSULE. PO SCH ×4 (07:55→19:55)
[2017-04-29] MEDS: oxyCODONE ER 10 MG TAB.ER.12H PO SCH ×2 (07:55→19:56)
[2017-04-29] MEDS: HYDROXYCHLOROQUINE 200 MG TABLET PO SCH ×2 (07:56→19:56)
[2017-04-29] MEDS: CALCIUM CARBONATE 500 MG TABLET PO SCH (07:56)
[2017-04-29] MEDS: MONTELUKAST 10 MG TABLET. PO SCH (07:56)
[2017-04-29] MEDS: PANTOPRAZOLE 40 MG TABLET. PO SCH (07:56)
[2017-04-29] MEDS: DOCUSATE SODIUM 100 MG CAPSULE PO SCH ×2 (07:56→19:56)
[2017-04-29] MEDS: OMEGA-3 FATTY ACIDS/FISH OIL 1,000 MG CAPSULE. PO SCH ×3 (07:56→19:56)
[2017-04-29] MEDS: VENLAFAXINE 75 MG TABLET. PO SCH ×2 (07:57→19:57)
[2017-04-29] MEDS: ROFLUMILAST 500 MCG TABLET PO SCH (07:57)
[2017-04-29] MEDS: AMITRIPTYLINE HCL 25 MG TABLET PO SCH ×3 (07:58→19:55)
[2017-04-29] MEDS: BUDESONIDE 0.5 MG/2 ML NEBU NEB SCH ×2 (10:16→21:03)
[2017-04-29 18:04] VITALS: BP 117/64
[2017-04-29] MEDS: CARISOPRODOL 350 MG TABLET PO SCH (19:56)
[2017-04-29] MEDS: MELOXICAM 15 MG TABLET. PO SCH (19:56)
[2017-04-29] MEDS: LIDOCAINE (700MG/PATCH) PATCH. TP SCH (19:57)
[2017-04-30] MEDS: oxyCODONE IR 5 MG TABLET PO PRN ×2 (04:41→12:25)
[2017-04-30 05:36] VITALS: BP 143/81
[2017-04-30] MEDS: IPRATRPIUM/ALBUTEROL 0.5/2.5MG 3 ML NEBU. NEB SCH ×4 (05:55→20:00)
[2017-04-30] MEDS: PANTOPRAZOLE 40 MG TABLET. PO SCH ×2 (06:21→08:20)
[2017-04-30] MEDS: DOCUSATE SODIUM 100 MG CAPSULE PO SCH ×2 (08:17→20:54)
[2017-04-30] MEDS: CALCIUM CARBONATE 500 MG TABLET PO SCH (08:20)
[2017-04-30] MEDS: GABAPENTIN 300 MG CAPSULE. PO SCH ×4 (08:20→20:55)
[2017-04-30] MEDS: oxyCODONE ER 10 MG TAB.ER.12H PO SCH ×2 (08:20→20:55)
[2017-04-30] MEDS: OMEGA-3 FATTY ACIDS/FISH OIL 1,000 MG CAPSULE. PO SCH ×3 (08:20→20:55)
[2017-04-30] MEDS: MONTELUKAST 10 MG TABLET. PO SCH (08:21)
[2017-04-30] MEDS: ROFLUMILAST 500 MCG TABLET PO SCH (08:22)
[2017-04-30] MEDS: VENLAFAXINE 75 MG TABLET. PO SCH ×2 (08:22→20:55)
[2017-04-30] MEDS: HYDROXYCHLOROQUINE 200 MG TABLET PO SCH ×2 (08:22→20:54)
[2017-04-30] MEDS: AMITRIPTYLINE HCL 25 MG TABLET PO SCH ×3 (08:23→20:55)
[2017-04-30] MEDS: BUDESONIDE 0.5 MG/2 ML NEBU NEB SCH ×2 (10:40→20:00)
[2017-04-30] MEDS: POLYETHYLENE GLYCOL 3350 17 GM PACKET. PO PRN (14:20)
[2017-04-30 18:10] VITALS: BP 106/55
[2017-04-30] MEDS: CARISOPRODOL 350 MG TABLET PO SCH (20:55)
[2017-04-30] MEDS: MELOXICAM 15 MG TABLET. PO SCH (20:55)
[2017-04-30] MEDS: LIDOCAINE (700MG/PATCH) PATCH. TP SCH (20:56)
[2017-05-01 05:46] VITALS: BP 134/82
[2017-05-01] MEDS: oxyCODONE IR 5 MG TABLET PO PRN ×3 (05:52→13:50)
[2017-05-01] MEDS: IPRATRPIUM/ALBUTEROL 0.5/2.5MG 3 ML NEBU. NEB SCH ×4 (06:15→21:09)
[2017-05-01] MEDS: OMEGA-3 FATTY ACIDS/FISH OIL 1,000 MG CAPSULE. PO SCH ×3 (08:56→20:42)
[2017-05-01] MEDS: DOCUSATE SODIUM 100 MG CAPSULE PO SCH ×2 (08:56→20:42)
[2017-05-01] MEDS: MONTELUKAST 10 MG TABLET. PO SCH (08:57)
[2017-05-01] MEDS: PANTOPRAZOLE 40 MG TABLET. PO SCH (08:57)
[2017-05-01] MEDS: oxyCODONE ER 10 MG TAB.ER.12H PO SCH ×2 (08:57→20:43)
[2017-05-01] MEDS: CALCIUM CARBONATE 500 MG TABLET PO SCH (08:57)
[2017-05-01] MEDS: AMITRIPTYLINE HCL 25 MG TABLET PO SCH ×3 (08:58→20:40)
[2017-05-01] MEDS: GABAPENTIN 300 MG CAPSULE. PO SCH ×4 (08:58→21:03)
[2017-05-01] MEDS: POLYETHYLENE GLYCOL 3350 17 GM PACKET. PO PRN (08:58)
[2017-05-01] MEDS: HYDROXYCHLOROQUINE 200 MG TABLET PO SCH ×2 (08:58→20:42)
[2017-05-01] MEDS: VENLAFAXINE 75 MG TABLET. PO SCH ×2 (08:59→20:45)
[2017-05-01] MEDS: ROFLUMILAST 500 MCG TABLET PO SCH (08:59)
[2017-05-01] MEDS: BUDESONIDE 0.5 MG/2 ML NEBU NEB SCH ×2 (11:27→21:09)
[2017-05-01 18:48] LABS: BACTERIA,URINE 0 /HPF (0-FEW); BILIRUBIN,URINE NEG (NEG); CLARITY,URINE HAZY; COLOR,URINE YELLOW; GLUCOSE,URINE NEG (NEG); NITRITE,URINE NEG (NEG); SQUAMOUS EPITHELIAL CELL,UR MANY /LPF; UROBILINOGEN,URINE 0.2 mg/dL (0.2 mg/dL)
[2017-05-01] MEDS: CARISOPRODOL 350 MG TABLET PO SCH (20:42)
[2017-05-01] MEDS: MELOXICAM 15 MG TABLET. PO SCH (20:42)
[2017-05-01] MEDS: LIDOCAINE (700MG/PATCH) PATCH. TP SCH (20:45)
[2017-05-02] MEDS: oxyCODONE IR 5 MG TABLET PO PRN ×2 (02:24→14:15)
[2017-05-02 05:47] VITALS: BP 126/69
[2017-05-02] MEDS: IPRATRPIUM/ALBUTEROL 0.5/2.5MG 3 ML NEBU. NEB SCH ×4 (06:08→19:53)
[2017-05-02] MEDS: CALCIUM CARBONATE 500 MG TABLET PO SCH (09:53)
[2017-05-02] MEDS: oxyCODONE ER 10 MG TAB.ER.12H PO SCH ×2 (09:53→21:08)
[2017-05-02] MEDS: GABAPENTIN 300 MG CAPSULE. PO SCH ×4 (09:53→21:08)
[2017-05-02] MEDS: ROFLUMILAST 500 MCG TABLET PO SCH (09:53)
[2017-05-02] MEDS: AMITRIPTYLINE HCL 25 MG TABLET PO SCH ×3 (09:53→21:11)
[2017-05-02] MEDS: OMEGA-3 FATTY ACIDS/FISH OIL 1,000 MG CAPSULE. PO SCH ×3 (09:53→21:09)
[2017-05-02] MEDS: DOCUSATE SODIUM 100 MG CAPSULE PO SCH ×2 (09:53→21:09)
[2017-05-02] MEDS: HYDROXYCHLOROQUINE 200 MG TABLET PO SCH ×2 (09:54→21:10)
[2017-05-02] MEDS: MONTELUKAST 10 MG TABLET. PO SCH (09:54)
[2017-05-02] MEDS: VENLAFAXINE 75 MG TABLET. PO SCH ×2 (09:54→21:11)
[2017-05-02 10:16] VITALS: BP 100/66
[2017-05-02] MEDS: BUDESONIDE 0.5 MG/2 ML NEBU NEB SCH ×2 (11:07→19:53)
[2017-05-02 17:15] VITALS: BP 108/69
[2017-05-02 19:35] VITALS: BP 116/71
[2017-05-02] MEDS: LIDOCAINE (700MG/PATCH) PATCH. TP SCH (21:07)
[2017-05-02] MEDS: CARISOPRODOL 350 MG TABLET PO SCH (21:08)
[2017-05-02] MEDS: MELOXICAM 15 MG TABLET. PO SCH (21:09)
[2017-05-03] MEDS: oxyCODONE IR 5 MG TABLET PO PRN ×2 (05:42→12:51)
[2017-05-03 05:48] VITALS: BP 114/65
[2017-05-03] MEDS: IPRATRPIUM/ALBUTEROL 0.5/2.5MG 3 ML NEBU. NEB SCH ×4 (05:55→21:25)
[2017-05-03] MEDS: BUDESONIDE 0.5 MG/2 ML NEBU NEB SCH ×2 (08:00→21:25)
[2017-05-03] MEDS: HYDROXYCHLOROQUINE 200 MG TABLET PO SCH ×2 (08:51→20:48)
[2017-05-03] MEDS: DOCUSATE SODIUM 100 MG CAPSULE PO SCH ×2 (08:51→20:46)
[2017-05-03] MEDS: VENLAFAXINE 75 MG TABLET. PO SCH ×2 (08:51→20:47)
[2017-05-03] MEDS: AMITRIPTYLINE HCL 25 MG TABLET PO SCH ×3 (08:51→20:47)
[2017-05-03] MEDS: ROFLUMILAST 500 MCG TABLET PO SCH (08:51)
[2017-05-03] MEDS: CALCIUM CARBONATE 500 MG TABLET PO SCH (08:52)
[2017-05-03] MEDS: OMEGA-3 FATTY ACIDS/FISH OIL 1,000 MG CAPSULE. PO SCH ×3 (08:52→20:47)
[2017-05-03] MEDS: MONTELUKAST 10 MG TABLET. PO SCH (08:52)
[2017-05-03] MEDS: GABAPENTIN 300 MG CAPSULE. PO SCH ×4 (08:52→20:47)
[2017-05-03] MEDS: oxyCODONE ER 10 MG TAB.ER.12H PO SCH ×2 (08:52→20:48)
[2017-05-03] MEDS: PANTOPRAZOLE 40 MG TABLET. PO SCH (08:52)
--- NOTE | 2017-05-03 10:11 | PN ---
DATE: 05/02/2017 CURRENT PROBLEMS: 1. Status post fall with 6th, 7th and 8th rib fractures. 2. Pain management. 3. Chronic obstructive pulmonary disease exacerbation. 4. Chronic hypoxic respiratory failure. 5. Asthma. 6. Fibromyalgia. 7. Osteoporosis and osteoarthritis. 8. Fall risk. SUBJECTIVE: This is a 66-year-old female who was admitted to [facility] on 04/24/2017 for further rehabilitation and pain management of her rib fractures. She has been doing fairly well and is on multiple different medications for pain including long-acting OxyContin and short-acting oxycodone. She is still having quite a bit of pain on that left side, is doing her PT and OT. OBJECTIVE: VITAL SIGNS: Blood pressure 100/66, temperature 97.3, pulse 90, respirations 18, pulse ox is 93% on 3 liters, color slightly pale. NECK: Supple. LUNGS: Clear without wheezes or rhonchi. CARDIOVASCULAR: Regular rhythm and rate. ABDOMEN: Soft, nontender. Left side still has palpable pain in the areas of rib fracture. No bruising noted. EXTREMITIES: Without edema. LABORATORY DATA: None new to check. PLAN: The patient states she thinks she would be able to go home on Sunday. She thinks she is going to try a heating pad as well. KASI CAMPBELL DO DR: FREDDY/manjinder JOB#: [id number] / [id number]
[2017-05-03 17:26] VITALS: BP 129/84
[2017-05-03] MEDS: MELOXICAM 15 MG TABLET. PO SCH (20:47)
[2017-05-03] MEDS: LIDOCAINE (700MG/PATCH) PATCH. TP SCH (20:48)
[2017-05-03] MEDS: CARISOPRODOL 350 MG TABLET PO SCH (20:48)
[2017-05-04] MEDS: IPRATRPIUM/ALBUTEROL 0.5/2.5MG 3 ML NEBU. NEB SCH ×2 (05:23→10:45)
[2017-05-04 06:01] VITALS: BP 114/74
[2017-05-04 07:26] VITALS: BP 116/76
[2017-05-04] MEDS: DOCUSATE SODIUM 100 MG CAPSULE PO SCH (07:27)
[2017-05-04] MEDS: PANTOPRAZOLE 40 MG TABLET. PO SCH (07:27)
[2017-05-04] MEDS: ROFLUMILAST 500 MCG TABLET PO SCH (07:28)
[2017-05-04] MEDS: VENLAFAXINE 75 MG TABLET. PO SCH (07:28)
[2017-05-04] MEDS: OMEGA-3 FATTY ACIDS/FISH OIL 1,000 MG CAPSULE. PO SCH ×2 (07:29→13:52)
[2017-05-04] MEDS: AMITRIPTYLINE HCL 25 MG TABLET PO SCH ×2 (07:29→13:52)
[2017-05-04] MEDS: GABAPENTIN 300 MG CAPSULE. PO SCH ×2 (07:29→13:52)
[2017-05-04] MEDS: CALCIUM CARBONATE 500 MG TABLET PO SCH (07:30)
[2017-05-04] MEDS: oxyCODONE ER 10 MG TAB.ER.12H PO SCH (07:31)
[2017-05-04] MEDS: HYDROXYCHLOROQUINE 200 MG TABLET PO SCH (07:31)
[2017-05-04] MEDS: MONTELUKAST 10 MG TABLET. PO SCH (07:31)
[2017-05-04] MEDS ORDERED: LIDO700A39 TP (10:40)
[2017-05-04] MEDS: BUDESONIDE 0.5 MG/2 ML NEBU NEB SCH (10:45)
--- NOTE | 2017-05-04 12:03 | PDOC3 ---
Discharge Summary Visit Information Date of Admission: Apr 27, 2017 Date of Discharge: May 04, 2017 Admitting Diagnosis Comments CURRENT PROBLEMS: 1. Status post fall with 6th, 7th and 8th rib fractures. 2. Pain management. 3. Chronic obstructive pulmonary disease exacerbation. 4. Chronic hypoxic respiratory failure. 5. Asthma. 6. Fibromyalgia. 7. Osteoporosis and osteoarthritis. 8. Fall risk. Problems: Brief Hospital Course Allergies Allergies Coded Allergies Type Severity Reaction Last Updated Verified No Known Drug Allergies 06/10/13 No Vital Signs Vital Signs Date Time Temp Pulse Resp B/P (MAP) Pulse Ox O2 Delivery O2 Flow Rate FiO2 05/04/17 10:46 90 Room Air 3.0 05/04/17 07:31 16 05/04/17 07:26 97.5 84 116/76 (89) Brief Hospital Course Ms. Connors is a 66 old [sex] who presented FOR ADMISSION TO [facility] FOR PT/OT, REHAB AND PAIN MANAGEMENT AFTER SUSTAINING A FALL AND FRACTURING 3 RIBS. SHE DID WELL WITH HER REHAB AND WAS MAINTAINED WITH OXYCONTIN AND SHORT ACTING OXYCODONE. Discharge Information Condition at Discharge: Improved Disposition/Orders: D/C to Home Dischare Medications Current Medications Albuterol Sulfate (Ventolin) 2.5 mg PRN Q4HRS PRN NEB SHORTNESS OF BREATH; Start 04/27/17 at 19:00 Amitriptyline HCl (Elavil) 25 mg TID PO Last administered on 05/04/17 07:29; Start 04/27/17 at 21:00 Calcium Carbonate/ Glycine (Oscal) 500 mg DAILY PO Last administered on 07:30; Start 04/28/17 at 09:00 Carisoprodol (Soma) 700 mg QHS PO Last administered on 05/03/17 20:48; Start 04/27/17 at 21:00 Guaifenesin (Mucinex Er) 1,200 mg PRN BID PRN PO CONGESTION; Start 04/27/17 at 19:00 Hydroxychloroquine Sulfate (Plaquenil) 200 mg BID PO Last administered on 05/04 07:31; Start 04/27/17 at 21:00 Lidocaine (Lidoderm) 1 patch QHS TP Last administered on 05/03/17 20:48; Start 04/27/17 at 21:00 Meloxicam (Mobic) 15 mg HS PO Last administered on 05/03/17 20:47; Start at 21:00 Montelukast Sodium (Singulair) 10 mg DAILY PO Last administered on 05/04/17 07:31; Start 04/28/17 at 09:00 Fish Oil (Fish Oil) 1,000 mg TID PO Last administered on 05/04/17 07:29; Start 04/27/17 at 21:00 Ondansetron HCl (Zofran Odt) 4 mg PRN Q6HRS PRN PO NAUSEA; Start 04/27/17 at 19:00 Oxycodone HCl (Roxicodone) 5 mg PRN Q3HRS PRN PO PAIN Last administered on 12:51; Start 04/27/17 at 19:00 Oxycodone HCl (OxyCONTIN) 10 mg BID PO Last administered on 05/04/17 07:31; Start 04/27/17 at 21:00 Pantoprazole Sodium (Protonix) 40 mg DAILYAC PO Last administered on 07:27; Start 04/28/17 at 07:30 Venlafaxine HCl (Effexor) 75 mg QHS PO Last administered on 05/03/17 20:47; Start 04/27/17 at 21:00 Venlafaxine HCl (Effexor) 150 mg DAILY PO Last administered on 05/04/17 07:28 ; Start 04/28/17 at 09:00 Non-Formulary Medication 1 puff PRN Q4-6HRS PRN IH FOR ASTHMA; Start 04/27/17 at 19:00; Status UNV Non-Formulary Medication 1 puff BID IH ; Start 04/27/17 at 21:00; Status UNV Gabapentin (Neurontin) 600 mg QID PO Last administered on 05/04/17 07:29; Start 04/27/17 at 21:00 Non-Formulary Medication 18 mcg DAILY IH ; Start 04/28/17 at 09:00; Status UNV Budesonide (Pulmicort) 0.5 mg RTBID NEB Last administered on 05/04/17 10:45; Start 04/27/17 at 20:00 Albuterol/ Ipratropium (Duoneb) 3 ml RTQID NEB Last administered on 05/04/17 10:45; Start 04/27/17 at 20:00 Docusate Sodium (Colace) 100 mg BID PO Last administered on 05/04/17 07:27; Start 04/27/17 at 21:00 Polyethylene Glycol (miraLAX) 17 gm PRN DAILY PRN PO CONSTIPATION Last administered on 05/01/17 08:58; Start 04/30/17 at 14:00 Active Scripts Active Zofran Odt (Ondansetron) 4 Mg Tab.rapdis 4 Mg PO Q6HRS PRN Reported Lidocaine 1 Each Adh..patch 1 Each TP QHS Oxycodone Hcl 5 Mg Tablet 1 Tab PO PRN Q3HRS PRN Oxycontin (Oxycodone HCl) 10 Mg Tab.er.12h 10 Mg PO BID Gabapentin 600 Mg Tablet 600 Mg PO QID Daliresp (Roflumilast) 500 Mcg Tablet 500 Mcg PO DAILY Hydroxychloroquine Sulfate 200 Mg Tablet 200 Mg PO BID Amitriptyline Hcl 25 Mg Tablet 25 Mg PO TID Calcium (Calcium Carbonate) 500 Mg Tablet 500 Mg PO Fish Oil 1,000 Mg Capsule ([place]-3 Fatty Acids/Fish Oil) 1 Each Capsule 1 Each PO TID Soma (Carisoprodol) 350 Mg Tablet 700 Mg PO QHS Spiriva (Tiotropium [place]) 18 Mcg Cap.w.dev 18 Mcg IH DAILY Venlafaxine Hcl 75 Mg Tablet 75 Mg PO QHS Venlafaxine Hcl 75 Mg Tablet 150 Mg PO DAILY Albuterol Sulfate Neb Soln (Albuterol Sulfate) 2.5 Mg/3 Ml Vial.neb 2.5 Mg NEB PRN Q4-6HRS Advair 500-50 Diskus (Fluticasone/Salmeterol) 1 Each Disk.w.dev 1 Puff IH BID Proair Respiclick (Albuterol Sulfate) 90 Mcg Aer.pow.ba 1 Puff IH PRN Q4-6HRS PRN Protonix (Pantoprazole Sodium) 40 Mg Tablet.dr 40 Mg PO DAILYAC Mucinex (Guaifenesin) 600 Mg Tablet.er 1,200 Mg PO PRN BID Montelukast Sodium Tablet (Montelukast Sodium) 10 Mg Tablet 10 Mg PO DAILY Meloxicam 15 Mg Tablet 15 Mg PO HS LAST DOSE GIVEN: DATE: TIME: NEXT DOSE DUE: DATE: TIME: Patient Instructions Patient Instuctions SEE [facility] DISCHARGE KASI CAPMBELL DO May 04, 2017 12:02
[2017-05-04] MEDS: oxyCODONE IR 5 MG TABLET PO PRN (13:53)
== END 2017-05-04 14:30 | disposition home or self-care (01) | DRG 184 ==
LOC: LND 18:45
PROVIDERS: ADMIT Internal Medicine; ATTEND Internal Medicine
DX: S22.42XA Multiple fractures of ribs, left side, initial encounter for closed fracture (principal); J44.1 Chronic obstructive pulmonary disease with (acute) exacerbation; J96.11 Chronic respiratory failure with hypoxia; M79.7 Fibromyalgia; M81.0 Age-related osteoporosis without current pathological fracture; M19.90 Unspecified osteoarthritis, unspecified site; Z79.899 Other long term (current) drug therapy; W19.XXXA Unspecified fall, initial encounter; Y93.89 Activity, other specified; Y92.89 Other specified places as the place of occurrence of the external cause; Y99.8 Other external cause status
CPT/HCPCS: 81001; 94640; 94760; J7620; J7626; 97110; 97530; 97535

== ENCOUNTER → 2017-06-22 | Outpatient (CLI) | payer MEDICARE, OTHER ==
[~2017-06-22] MED LIST changes: +LIDO700A39 TP; +OXYC10TA45 PO; +OXYC5TAB95 PO
--- NOTE | 2017-06-22 12:22 | RAD ---
CT CHEST WO CONTRAST Indication: Lung nodule Technique: Noncontrast CT imaging was performed of the chest, multiplanar reconstruction images submitted. One or more of the following individualized dose reduction techniques were utilized for this examination: 1. Automated exposure control 2. Adjustment of the mA and/or kV according to patient size 3. Use of iterative reconstruction technique. Contrast: None Comparison: April 24, 2017 and oldest exam available May 24, 2014 Findings: There is some motion degradation. There is moderate to severe emphysema with upper zone predominance. Tiny right upper lobe nodules such as seen on axial images 53 and 54 series 2 are stable, up to 2 to 3 mm 4 to 5 mm noncalcified right lower lobe nodule axial image 70 series 2 is similar compared with the 2015 exam, somewhat more dense internally. There is mild linear likely fibrotic change right lower lobe also minimally of the left lower lobe. No new significant pulmonary nodularity is identified. There is very minimal density along the left lateral tracheal wall probably due to mucus. There is no new lobar consolidation, pleural or pericardial effusion, pneumothorax. There is some coronary calcification. No new significant lymphadenopathy is identified of the chest. There are multiple left lateral rib fractures, fourth, fifth, sixth, seventh, eighth ribs with some associated variable callus formation, more acute appearance on the April exam. IMPRESSION: 1. Previously seen pulmonary nodules are similar in size comparing with exams dating back to May 2014, largest nodule of the right lower lobe somewhat more dense internally. No new pulmonary nodularity is identified. 2. There is moderate to severe emphysema with upper zone predominance. 3. There is some coronary calcification. 4. Minimal density along the left lateral tracheal wall is likely due to mucus. 5. There are partially healed left lateral rib fractures. Electronically signed by: Scottie Sharma MD (06/22/2017 12:18 PM) [id number]
== END | disposition home or self-care (01) ==
LOC: CT 09:24
PROVIDERS: ATTEND Internal Medicine Pulmonary Disease
DX: J43.9 Emphysema, unspecified (principal); R91.8 Other nonspecific abnormal finding of lung field; I25.10 Atherosclerotic heart disease of native coronary artery without angina pectoris; S22.42XD Multiple fractures of ribs, left side, subsequent encounter for fracture with routine healing; X58.XXXD Exposure to other specified factors, subsequent encounter
CPT/HCPCS: 71250

== ENCOUNTER 2018-11-12 17:58 | Inpatient (IN) | payer MEDICARE, OTHER ==
[~2018-11-12] VITALS: Ht 162.6 cm; Wt 88.2 kg
[~2018-11-12 17:58] MED LIST changes: -ALBU90AE IH; -GABA600T2 PO; +GABA600T7 PO; +HYDR-2155 PO; -HYDR-2758 PO; +LIDO700A21 TP; -LIDO700A39 TP; +MONT10TA80 PO; -MONT10TA9 PO; -OXYC10TA45 PO; +OXYC10TA46 PO; +OXYC5TAB4 PO; -OXYC5TAB95 PO; +PROAIR RESPICL90 MCG IH
--- NOTE | 2018-11-12 18:05 | ED.ADGEN ---
Past History Past Medical History: Anxiety, COPD, Fibromyalgia, GERD, High Cholesterol Past Surgical History: Cholecystectomy, Hysterectomy Smoking: Non-smoker Alcohol Use: None Drug Use: None Adult General Chief Complaint Chief Complaint ".. I having increased..... breath...ing .. can't get... my .... breath......" HPI HPI Patient is a 68 year old female who presents with above hx and complaints of dyspnea. Pt. has know COPD oxygen dependant a 3 liters. Recent increase cough with trujillo to yellow sputum. Pt. recently admitted to [place] for pneumonia x 4 days. Pt. denies any travel. Not currently on steroids. Using home breathing treatments. Normally follows at [place]. Review of Systems Review of Systems Constitutional: Subjective fever or chills [] Eyes: Denies change in visual acuity, redness, or eye pain [] HENT: Hx. of nasal congestion and sore throat [] Respiratory: Constant cough and shortness of breath [] Cardiovascular: No additional information not addressed in HPI [] GI: Denies abdominal pain, nausea, vomiting, bloody stools or diarrhea [] : Denies dysuria or hematuria [] Musculoskeletal: Denies back pain or joint pain [] Integument: Denies rash or skin lesions [] Neurologic: Denies headache, focal weakness or sensory changes [] Endocrine: Denies polyuria or polydipsia [] All other systems were reviewed and found to be within normal limits, except as documented in this note. Family History Family History recently admitted 4 days for pneumonia Current Medications Current Medications Current Medications Medications (Trade) Dose Ordered Sig/Tereso Start Time Stop Time Status Last Admin Dose Admin Acetaminophen (Tylenol) 650 mg PRN Q4HRS PRN 11/12/18 19:30 11/13/18 19:29 Albuterol/ Ipratropium (Duoneb) 3 ml RTQID 11/12/18 20:00 11/13/18 19:59 Aspirin (Children'S Aspirin) 324 mg 1X ONCE 11/12/18 18:15 11/12/18 18:28 DC 11/12/18 18:35 324 MG Azithromycin (Zithromax) 500 mg 1X ONCE 11/12/18 18:15 11/12/18 18:28 DC 11/12/18 18:35 500 MG Ceftriaxone Sodium 1 gm/ Sodium Chloride 50 ml @ 100 mls/hr 1X ONCE 11/12/18 18:30 11/12/18 18:59 DC 11/12/18 18:34 100 MLS/HR Ceftriaxone Sodium (Rocephin) 1 gm STK-MED ONCE 11/12/18 18:29 11/12/18 18:30 DC Iohexol (Omnipaque 350 Mg/ml) 100 ml 1X ONCE 11/12/18 19:30 11/12/18 19:38 DC 11/12/18 19:47 100 ML Lactated Ringer's 1,000 ml @ 160 mls/hr Q6H15M 11/12/18 19:30 11/12/18 22:21 160 MLS/HR Methylprednisolone Sodium Succinate (SOLU-Medrol 125MG VIAL) 125 mg 1X ONCE 11/12/18 18:15 11/12/18 18:29 DC 11/12/18 18:35 125 MG Ondansetron HCl (Zofran) 4 mg PRN Q4HRS PRN 11/12/18 19:30 11/13/18 19:29 Sodium Chloride 50 ml @ As Directed STK-MED ONCE 11/12/18 18:29 11/12/18 18:30 DC Allergies Allergies Allergies Coded Allergies Type Severity Reaction Last Updated Verified No Known Drug Allergies 06/10/13 No Physical Exam Physical Exam Constitutional: Moderately acute distress, non-toxic appearance. [] HENT: Normocephalic, atraumatic, bilateral external ears normal, oropharynx moist, no oral exudates, nose normal. [] Eyes: PERRLA, EOMI, conjunctiva normal, no discharge. [] Neck: Normal range of motion, no tenderness, supple, no stridor. [] Cardiovascular: Tachycardia Heart rate regular rhythm, no murmur PMI to Lt. ] Lungs & Thorax: Bilateral breath sounds equal apexes with scattered wheezing through out auscultation [] Tripod position. Abdomen: Bowel sounds normal, soft, no tenderness, no masses, no pulsatile masses. [] Old surgery scars. Skin: Warm, dry, no erythema, no rash. [] Back: No tenderness, no CVA tenderness. [] Extremities: No tenderness, no cyanosis, no clubbing, ROM intact, no edema. [] Neurologic: Alert and oriented X 3, normal motor function, normal sensory function, no focal deficits noted. [] Psychologic: Affect anxious, judgement normal, mood normal. [] Current Patient Data Vital Signs Vital Signs Date Time Temp Pulse Resp B/P (MAP) Pulse Ox O2 Delivery O2 Flow Rate FiO2 11/12/18 20:09 95 18 139/82 (101) 96 Nasal Cannula 2.0 11/12/18 18:09 98.1 Lab Results Laboratory Tests Test 11/12/18 18:29 11/12/18 19:29 White Blood Count 9.0 x10^3/uL (4.0-11.0) Red Blood Count 4.31 x10^6/uL (3.50-5.40) Hemoglobin 13.6 g/dL (12.0-15.5) Hematocrit 41.0 % (36.0-47.0) Mean Corpuscular Volume 95 fL (79-100) Mean Corpuscular Hemoglobin 32 pg (25-35) Mean Corpuscular Hemoglobin Concent 33 g/dL (31-37) Red Cell Distribution Width 13.3 % (11.5-14.5) Platelet Count 199 x10^3/uL (140-400) Neutrophils (%) (Auto) 67 % (31-73) Lymphocytes (%) (Auto) 21 % (24-48) L Monocytes (%) (Auto) 6 % (0-9) Eosinophils (%) (Auto) 5 % (0-3) H Basophils (%) (Auto) 1 % (0-3) Neutrophils # (Auto) 6.0 x10^3uL (1.8-7.7) Lymphocytes # (Auto) 1.9 x10^3/uL (1.0-4.8) Monocytes # (Auto) 0.6 x10^3/uL (0.0-1.1) Eosinophils # (Auto) 0.4 x10^3/uL (0.0-0.7) Basophils # (Auto) 0.1 x10^3/uL (0.0-0.2) Prothrombin Time 9.9 SEC (9.4-11.4) Prothrombin Time INR 1.0 (0.9-1.1) PTT 25 SEC (23-33) D-Dimer (Steff) 0.83 mg/L (0.00-0.50) H Sodium Level 142 mmol/L (136-145) Potassium Level 3.7 mmol/L (3.5-5.1) Chloride Level 103 mmol/L (98-107) Carbon Dioxide Level 31 mmol/L (21-32) Anion Gap 8 (6-14) Blood Urea Nitrogen 10 mg/dL (7-20) Creatinine 0.8 mg/dL (0.6-1.0) Estimated GFR (Cockcroft-Gault) 71.3 Glucose Level 94 mg/dL (70-99) Calcium Level 9.3 mg/dL (8.5-10.1) Magnesium Level 1.9 mg/dL (1.8-2.4) Total Bilirubin 0.5 mg/dL (0.2-1.0) Direct Bilirubin 0.1 mg/dL (0.0-0.2) Aspartate Amino Transferase (AST) 17 U/L (15-37) Alanine Aminotransferase (ALT) 20 U/L (14-59) Alkaline Phosphatase 98 U/L (46-116) Creatine Kinase 86 U/L (26-192) Troponin I Quantitative < 0.017 ng/mL (0-0.055) ZL-Sef-J-Type Natriuretic Peptide 89 pg/mL (0-124) Total Protein 7.6 g/dL (6.4-8.2) Albumin 4.0 g/dL (3.4-5.0) Lipase 126 U/L (73-393) Urine Collection Type Unknown Urine Color Yellow Urine Clarity Hazy Urine pH 7.0 Urine Specific [place] <=1.005 Urine Protein Neg (NEG-TRACE) Urine Glucose (UA) Neg mg/dL (NEG) Urine Ketones (Stick) Neg mg/dL (NEG) Urine Blood Trace (NEG) Urine Nitrite Neg (NEG) Urine Bilirubin Neg (NEG) Urine Urobilinogen Dipstick 0.2 mg/dL (0.2 mg/dL) Urine Leukocyte Esterase Mod (NEG) Urine RBC 0 /HPF (0-2) Urine WBC 11-20 /HPF (0-4) Urine Squamous Epithelial Cells Occ /LPF Urine Bacteria Few /HPF (0-FEW) EKG EKG My interpretation of EKG shows sinus 99, Lt. axis, Lateral Lt Vent strain pattern. [] Radiology/Procedures Radiology/Procedures My interpretation of CXR shows COPD pattern, cardiomegaly, clip Rt. upper abd. [] Course & Med Decision Making Course & Med Decision Making Pertinent Labs and Imaging studies reviewed. (See chart for details) A she admitted to - for further evaluation and treatment. [] Final Impression Final Impression 1. Dyspnea 2. COPD Exacerbation 3. Acute on Chronic Resp. Failure - Hypoxia 4. Elevated D-Dimer 0.83[] Dragon Disclaimer Dragon Disclaimer This electronic medical record was generated, in whole or in part, using a voice recognition dictation system. Discharge Summary Visit Information Final Diagnosis Problems Medical Problems: (1) COPD (chronic obstructive pulmonary disease) Status: Acute Brief Hospital Course Allergies Allergies Coded Allergies Type Severity Reaction Last Updated Verified No Known Drug Allergies 06/10/13 No Vital Signs Vital Signs Date Time Temp Pulse Resp B/P (MAP) Pulse Ox O2 Delivery O2 Flow Rate FiO2 11/12/18 20:09 95 18 139/82 (101) 96 Nasal Cannula 2.0 11/12/18 18:09 98.1 Lab Results Laboratory Tests Test 11/12/18 18:29 11/12/18 19:29 White Blood Count 9.0 x10^3/uL (4.0-11.0) Red Blood Count 4.31 x10^6/uL (3.50-5.40) Hemoglobin 13.6 g/dL (12.0-15.5) Hematocrit 41.0 % (36.0-47.0) Mean Corpuscular Volume 95 fL (79-100) Mean Corpuscular Hemoglobin 32 pg (25-35) Mean Corpuscular Hemoglobin Concent 33 g/dL (31-37) Red Cell Distribution Width 13.3 % (11.5-14.5) Platelet Count 199 x10^3/uL (140-400) Neutrophils (%) (Auto) 67 % (31-73) Lymphocytes (%) (Auto) 21 % (24-48) Monocytes (%) (Auto) 6 % (0-9) Eosinophils (%) (Auto) 5 % (0-3) Basophils (%) (Auto) 1 % (0-3) Neutrophils # (Auto) 6.0 x10^3uL (1.8-7.7) Lymphocytes # (Auto) 1.9 x10^3/uL (1.0-4.8) Monocytes # (Auto) 0.6 x10^3/uL (0.0-1.1) Eosinophils # (Auto) 0.4 x10^3/uL (0.0-0.7) Basophils # (Auto) 0.1 x10^3/uL (0.0-0.2) Prothrombin Time 9.9 SEC (9.4-11.4) Prothromb Time International Ratio 1.0 (0.9-1.1) Activated Partial Thromboplast Time 25 SEC (23-33) D-Dimer (Steff) 0.83 mg/L (0.00-0.50) Sodium Level 142 mmol/L (136-145) Potassium Level 3.7 mmol/L (3.5-5.1) Chloride Level 103 mmol/L (98-107) Carbon Dioxide Level 31 mmol/L (21-32) Anion Gap 8 (6-14) Blood Urea Nitrogen 10 mg/dL (7-20) Creatinine 0.8 mg/dL (0.6-1.0) Estimated GFR (Cockcroft-Gault) 71.3 Glucose Level 94 mg/dL (70-99) Calcium Level 9.3 mg/dL (8.5-10.1) Magnesium Level 1.9 mg/dL (1.8-2.4) Total Bilirubin 0.5 mg/dL (0.2-1.0) Direct Bilirubin 0.1 mg/dL (0.0-0.2) Aspartate Amino Transf (AST/SGOT) 17 U/L (15-37) Alanine Aminotransferase (ALT/SGPT) 20 U/L (14-59) Alkaline Phosphatase 98 U/L (46-116) Creatine Kinase 86 U/L (26-192) Troponin I Quantitative < 0.017 ng/mL (0-0.055) YH-Rfz-J-Type Natriuretic Peptide 89 pg/mL (0-124) Total Protein 7.6 g/dL (6.4-8.2) Albumin 4.0 g/dL (3.4-5.0) Lipase 126 U/L (73-393) Urine Collection Type Unknown Urine Color Yellow Urine Clarity Hazy Urine pH 7.0 Urine Specific [place] <=1.005 Urine Protein Neg (NEG-TRACE) Urine Glucose (UA) Neg mg/dL (NEG) Urine Ketones (Stick) Neg mg/dL (NEG) Urine Blood Trace (NEG) Urine Nitrite Neg (NEG) Urine Bilirubin Neg (NEG) Urine Urobilinogen Dipstick 0.2 mg/dL (0.2 mg/dL) Urine Leukocyte Esterase Mod (NEG) Urine RBC 0 /HPF (0-2) Urine WBC 11-20 /HPF (0-4) Urine Squamous Epithelial Cells Occ /LPF Urine Bacteria Few /HPF (0-FEW) Brief Hospital Course Ms. Connors is a 68 old female who presented with COPD exacerbation. Admitted to Dr. Allen Discharge Information Condition at Discharge: Improved Dischare Medications Current Medications Albuterol/ Ipratropium (Duoneb) 3 ml STK-MED ONCE .ROUTE ; Start 11/12/18 at 18:07; Stop 11/12/18 at 18:08; Status DC Aspirin (Children'S Aspirin) 324 mg 1X ONCE PO Last administered on 11/12/18at 18:35; Admin Dose 324 MG; Start 11/12/18 at 18:15; Stop 11/12/18 at 18:28; Status DC Lactated Ringer's 1,000 ml @ 100 mls/hr Q10H IV Last administered on 11/12/18at 18:35; Admin Dose 100 MLS/HR; Start 11/12/18 at 18:30; Stop 11/13/18 at 04:29 Methylprednisolone Sodium Succinate (SOLU-Medrol 125MG VIAL) 125 mg 1X ONCE IV Last administered on 11/12/18at 18:35; Admin Dose 125 MG; Start 11/12/18 at 18:15; Stop 11/12/18 at 18:29; Status DC Ceftriaxone Sodium 1 gm/ Sodium Chloride 50 ml @ 100 mls/hr 1X ONCE IV Last administered on 11/12/18at 18:34; Admin Dose 100 MLS/HR; Start 11/12/18 at 18:30; Stop 11/12/18 at 18:59; Status DC Azithromycin (Zithromax) 500 mg 1X ONCE PO Last administered on 11/12/18at 18:35; Admin Dose 500 MG; Start 11/12/18 at 18:15; Stop 11/12/18 at 18:28; Status DC Sodium Chloride 50 ml @ As Directed STK-MED ONCE .ROUTE ; Start 11/12/18 at 18:29; Stop 11/12/18 at 18:30; Status DC Ceftriaxone Sodium (Rocephin) 1 gm STK-MED ONCE .ROUTE ; Start 11/12/18 at 18:29; Stop 11/12/18 at 18:30; Status DC Ondansetron HCl (Zofran) 4 mg PRN Q4HRS PRN IV NAUSEA/VOMITING; Start 11/12/18 at 19:30; Stop 11/13/18 at 19:29 Acetaminophen (Tylenol) 650 mg PRN Q4HRS PRN PO FEVER; Start 11/12/18 at 19:30; Stop 11/13/18 at 19:29 Albuterol/ Ipratropium (Duoneb) 3 ml RTQID NEB ; Start 11/12/18 at 20:00; Stop 11/13/18 at 19:59 Lactated Ringer's 1,000 ml @ 160 mls/hr Q6H15M IV Last administered on 11/12/18at 22:21; Admin Dose 160 MLS/HR; Start 11/12/18 at 19:30 Iohexol (Omnipaque 350 Mg/ml) 100 ml 1X ONCE IV Last administered on 11/12/18at 19:47; Admin Dose 100 ML; Start 11/12/18 at 19:30; Stop 11/12/18 at 19:38; Status DC Active Scripts Active Reported Wellbutrin Sr (Bupropion Hcl) 150 Mg Tablet.er 300 PO HS Gabapentin 600 Mg Tablet 600 Mg PO TID LAST DOSE GIVEN: DATE: TIME: NEXT DOSE DUE: DATE: TIME: Daliresp (Roflumilast) 500 Mcg Tablet 500 Mcg PO DAILY LAST DOSE GIVEN: DATE: TIME: NEXT DOSE DUE: DATE: TIME: Amitriptyline Hcl 25 Mg Tablet 100 Mg PO DAILY LAST DOSE GIVEN: DATE: TIME: NEXT DOSE DUE: DATE: TIME: Calcium (Calcium Carbonate) 500 Mg Tablet 500 Mg PO LAST DOSE GIVEN: DATE: TIME: NEXT DOSE DUE: DATE: TIME: Fish Oil 1,000 Mg Capsule ([place]-3 Fatty Acids/Fish Oil) 1 Each Capsule 1 Each PO TID LAST DOSE GIVEN: DATE: TIME: NEXT DOSE DUE: DATE: TIME: Soma (Carisoprodol) 350 Mg Tablet 700 Mg PO QHS LAST DOSE GIVEN: DATE: TIME: NEXT DOSE DUE: DATE: TIME: Spiriva (Tiotropium [place]) 18 Mcg Cap.w.dev 18 Mcg IH DAILY LAST DOSE GIVEN: DATE: TIME: NEXT DOSE DUE: DATE: TIME: Albuterol Sulfate Neb Soln (Albuterol Sulfate) 2.5 Mg/3 Ml Vial.neb 2.5 Mg NEB PRN Q4-6HRS LAST DOSE GIVEN: DATE: TIME: NEXT DOSE DUE: DATE: TIME: Advair 500-50 Diskus (Fluticasone/Salmeterol) 1 Each Disk.w.dev 1 Puff IH BID LAST DOSE GIVEN: DATE: TIME: NEXT DOSE DUE: DATE: TIME: Protonix (Pantoprazole Sodium) 40 Mg Tablet.dr 40 Mg PO DAILY LAST DOSE GIVEN: DATE: TIME: NEXT DOSE DUE: DATE: TIME: Mucinex (Guaifenesin) 600 Mg Tablet.er 600 Mg PO BID LAST DOSE GIVEN: DATE: TIME: NEXT DOSE DUE: DATE: TIME: Montelukast Sodium Tablet (Montelukast Sodium) 10 Mg Tablet 10 Mg PO DAILY LAST DOSE GIVEN: DATE: TIME: NEXT DOSE DUE: DATE: TIME: Meloxicam 15 Mg Tablet 15 Mg PO HS LAST DOSE GIVEN: DATE: TIME: NEXT DOSE DUE: DATE: TIME: Dragon Disclaimer This chart was dictated in whole or in part using Voice Recognition software in a busy, high-work load, and often noisy Emergency Department environment. It m ay contain unintended and wholly unrecognized errors or omissions. FELECIA ESPINOSA MD Nov 12, 2018 18:05
[2018-11-12] MEDS ORDERED: IPRATRPIUM/ALBUTEROL 0.5/2.5MG 3 ML NEBU. ONE (18:07)
[2018-11-12] MEDS ORDERED: ASPIRIN 81 MG TAB.CHEW PO ONE (18:15)
[2018-11-12] MEDS ORDERED: AZITHROMYCIN 250 MG TABLET. PO ONE (18:15)
[2018-11-12] MEDS ORDERED: methylPREDNISolone SOD SUCC PF 125 MG/2 ML VIAL. IV ONE (18:15)
[2018-11-12] MEDS ORDERED: IV NORMAL SALINE 50ML 50 ML ONE (18:29)
[2018-11-12] MEDS ORDERED: cefTRIAXone SODIUM 1 GM VIAL ONE (18:29)
[2018-11-12] MEDS ORDERED: IV RINGERS SOLUTION,LACTATED 1,000 ML IV SCH (18:30)
[2018-11-12 18:49] LABS: BASO # 0.1 x10^3/uL (0.0-0.2); BASO % 1 % (0-3); EOS # 0.4 x10^3/uL (0.0-0.7); EOS % 5 % (0-3); HEMOGLOBIN 13.6 g/dL (12.0-15.5); LYMPH # 1.9 x10^3/uL (1.0-4.8); LYMPH % 21 % (24-48); MEAN CORPUSCULAR HEMOGLOBIN 32 pg (25-35); MEAN CORPUSCULAR HGB CONC 33 g/dL (31-37); MEAN CORPUSCULAR VOLUME 95 fL (79-100); MONO # 0.6 x10^3/uL (0.0-1.1); MONO % 6 % (0-9); NEUT % 67 % (31-73); PLATELET COUNT 199 x10^3/uL (140-400); RED BLOOD COUNT 4.31 x10^6/uL (3.50-5.40); RED CELL DISTRIBUTION WIDTH 13.3 % (11.5-14.5)
[2018-11-12 19:07] LABS: CALCIUM 9.3 mg/dL (8.5-10.1); CREATININE 0.8 mg/dL (0.6-1.0); DIRECT BILIRUBIN 0.1 mg/dL (0.0-0.2); GFR 71.3; MAGNESIUM 1.9 mg/dL (1.8-2.4); POTASSIUM 3.7 mmol/L (3.5-5.1); TOTAL BILIRUBIN 0.5 mg/dL (0.2-1.0); TOTAL PROTEIN 7.6 g/dL (6.4-8.2)
[2018-11-12] MEDS ORDERED: ACETAMINOPHEN 325 MG TABLET PO PRN (19:30)
[2018-11-12] MEDS ORDERED: IOHEXOL 350 MG/ML 100 ML VIAL. IV ONE (19:30)
[2018-11-12] MEDS ORDERED: ONDANSETRON PF 4 MG/2 ML VIAL. IV PRN (19:30)
[2018-11-12 19:43] LABS: BILIRUBIN,URINE NEG (NEG); CLARITY,URINE HAZY; COLOR,URINE YELLOW; GLUCOSE,URINE NEG (NEG)
[2018-11-12 19:44] LABS: BACTERIA,URINE FEW /HPF (0-FEW); NITRITE,URINE NEG (NEG); RBC,URINE 0 /HPF (0-2); SQUAMOUS EPITHELIAL CELL,UR OCC /LPF; UROBILINOGEN,URINE 0.2 mg/dL (0.2 mg/dL)
[2018-11-12] MEDS ORDERED: IPRATRPIUM/ALBUTEROL 0.5/2.5MG 3 ML NEBU. NEB SCH (20:00)
[2018-11-12] MEDS ORDERED: ENOXAPARIN ** NOTE DOSE ** SYRINGE SQ ONE (21:00)
--- NOTE | 2018-11-12 21:00 | RAD ---
CT arteriogram of the chest. HISTORY: Dyspnea, chest pain CT arteriogram of the chest was done using 100 mL Omnipaque 350 contrast. Sagittal and coronal reconstructed images were reviewed. Thyroid is homogeneous. There is no adenopathy. There is no pleural effusion. Spleen is generous in size. A liver lesion is not identified in the upper liver. There is mild atelectasis along the left diaphragm although mild infiltrate is possible. There is elevation left diaphragm. There are no other infiltrates. There are emphysematous changes from chronic obstructive pulmonary disease there is a small nodule on image #72 unchanged from the old study. There is a nodule on image #71 similar to the old study as well. There is mild atelectasis along the fissure in the left upper lobe. This study is negative for evidence of a pulmonary embolus. IMPRESSION: 1. COPD. 2. Small right lung nodules without change. 3. Mild atelectasis. 4. Negative for a pulmonary embolus. PQRS Compliance Statement: One or more of the following individualized dose reduction techniques were utilized for this examination: 1. Automated exposure control 2. Adjustment of the mA and/or kV according to patient size 3. Use of iterative reconstruction technique Electronically signed by: Ron Britt MD (11/12/2018 8:57 PM) [facility]
[2018-11-12 21:05] VITALS: BP 143/69
[2018-11-12] MEDS ORDERED: BUPR150T8 PO (21:59)
[2018-11-12] MEDS: IV RINGERS SOLUTION,LACTATED 1,000 ML IV SCH (22:21)
--- NOTE | 2018-11-12 22:24 | RAD ---
PA and lateral chest. HISTORY: Dyspnea PA and lateral views were taken of the chest. Heart is normal in size. There is no pleural effusion. There are no confluent infiltrates. There are changes from chronic obstructive pulmonary disease. IMPRESSION: 1. No acute infiltrates. Electronically signed by: Ron Britt MD (11/12/2018 10:21 PM) [facility]
[2018-11-13] MEDS: IV RINGERS SOLUTION,LACTATED 1,000 ML IV SCH ×3 (01:45→18:55)
[2018-11-13] MEDS ORDERED: methylPREDNISolone SOD SUCC PF 40 MG/ML VIAL. IV SCH (06:00)
[2018-11-13 06:13] VITALS: BP 157/90
[2018-11-13 06:40] LABS: CALCIUM 9.3 mg/dL (8.5-10.1); CREATININE 0.7 mg/dL (0.6-1.0); GFR 83.2; POTASSIUM 4.3 mmol/L (3.5-5.1)
[2018-11-13 06:44] LABS: BASO % 0 % (0-3); EOS % 0 % (0-3); HEMATOCRIT 39.5 % (36.0-47.0); HEMOGLOBIN 13.1 g/dL (12.0-15.5); LYMPH # 1.1 x10^3/uL (1.0-4.8); LYMPH % 14 % (24-48); MEAN CORPUSCULAR HEMOGLOBIN 31 pg (25-35); MEAN CORPUSCULAR HGB CONC 33 g/dL (31-37); MEAN CORPUSCULAR VOLUME 95 fL (79-100); MONO # 0.2 x10^3/uL (0.0-1.1); MONO % 2 % (0-9); NEUT # 6.4 x10^3uL (1.8-7.7); NEUT % 84 % (31-73); PLATELET COUNT 206 x10^3/uL (140-400); RED BLOOD COUNT 4.17 x10^6/uL (3.50-5.40); RED CELL DISTRIBUTION WIDTH 12.9 % (11.5-14.5); WHITE BLOOD COUNT 7.7 x10^3/uL (4.0-11.0)
[2018-11-13] MEDS ORDERED: ALBUTEROL SULFATE 2.5 MG/3 ML NEBU. NEB PRN (06:45)
[2018-11-13] MEDS: PANTOPRAZOLE 40 MG TABLET. PO SCH (07:48)
[2018-11-13] MEDS: IPRATRPIUM/ALBUTEROL 0.5/2.5MG 3 ML NEBU. NEB SCH ×4 (08:00→20:11)
[2018-11-13] MEDS: CALCIUM CARBONATE 500 MG TABLET PO SCH (08:07)
[2018-11-13] MEDS: GABAPENTIN 300 MG CAPSULE. PO SCH ×3 (08:07→21:23)
[2018-11-13] MEDS: OMEGA-3 FATTY ACIDS/FISH OIL 1,000 MG CAPSULE. PO SCH ×3 (08:08→21:23)
[2018-11-13] MEDS: ENOXAPARIN ** NOTE DOSE ** SYRINGE SQ SCH ×2 (08:08→21:25)
[2018-11-13] MEDS: ASPIRIN 81 MG TAB.CHEW PO SCH (08:08)
[2018-11-13] MEDS: methylPREDNISolone SOD SUCC PF 40 MG/ML VIAL. IV SCH ×3 (08:09→21:22)
[2018-11-13] MEDS: AZITHROMYCIN 250 MG TABLET. PO SCH (08:09)
[2018-11-13] MEDS: ROFLUMILAST 500 MCG TABLET PO SCH (08:18)
[2018-11-13] MEDS: LACTOBACILLUS RHAMNOSUS GG 1 CAPSULE. PO SCH ×2 (09:00→21:22)
[2018-11-13] MEDS: BUDESONIDE 0.5 MG/2 ML NEBU NEB SCH ×2 (09:45→20:11)
[2018-11-13 11:23] VITALS: BP 147/84
--- NOTE | 2018-11-13 12:56 | RAD ---
Bilateral lower extremity venous doppler ultrasound Indication: Elevated d-dimer. . Technique: Color Doppler, grayscale, and spectral waveform analysis is used to evaluate the right and left lower extremity deep venous system, including the common femoral vein, superficial femoral vein, popliteal vein, and visualized calf veins. Right leg: No evidence of deep venous thrombosis. Normal response to augmentation, normal compressibility and normal phasicity is demonstrated. Visualized calf veins are patent. Left leg: No evidence of deep venous thrombosis. Normal response to augmentation, normal compressibility and normal phasicity is demonstrated. Visualized calf veins are patent. Impression: Negative for deep venous thrombosis Electronically signed by: Mickey Briseno MD (11/13/2018 12:54 PM) [id number]
[2018-11-13 15:18] VITALS: BP 137/81
--- NOTE | 2018-11-13 18:37 | HP ---
ADMIT DATE: 11/12/2018 HISTORY OF PRESENT ILLNESS: The patient is a 68-year-old female patient who came to the Emergency Room complaining of increasing shortness of breath. The patient is known to have COPD and is oxygen dependent on 3 liters of oxygen and has increased cough with green to yellowish sputum. Her was admitted recently to [facility] for pneumonia for 4 days. She denied any travel or has been using her breathing treatment and normally follows at [facility]. She was evaluated in the Emergency Room, was found to have mildly elevated D-dimer 0.83. Her chest x-ray was apparently unremarkable; however, given that she has elevated D-dimer, she has had a CT angio of the chest, which was negative for pulmonary emboli and bilateral venous Doppler ultrasound showed negative for deep vein thrombosis. She was admitted for COPD exacerbation, was started on IV ceftriaxone. She was started on Lovenox, methylprednisolone as well as antibiotic. Her urinalysis showed she has 11-20 wbc's, few bacteria, moderate amount of leukocyte esterase. PAST MEDICAL HISTORY: Significant for chronic obstructive pulmonary disease, fibromyalgia and generalized osteoarthritis. She also has history of nephrolithiasis. PAST SURGICAL HISTORY: Significant for arthroscopic surgery of the left knee, tonsillectomy, cholecystectomy, total abdominal hysterectomy, bilateral salpingo-oophorectomy. She did have also colonoscopy and polypectomy. ALLERGIES: She has no known drug allergies. FAMILY HISTORY: She has 1 brother and 2 sisters, all younger and healthy. Her mother is still alive at the age of 89, has hypertension. She does not know her biological father. SOCIAL HISTORY: She is , has a daughter and a son. She is an ex-smoker, quit in 2002. She does not drink alcohol or use any recreational drugs. 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 REVIEW OF SYSTEMS: The patient denied any blurring of vision, cataract, glaucoma or macular degeneration. Denied any earache, tinnitus or sensorineural deafness. Denied any nosebleeds, stuffy nose or postnasal drip. Denied any sore throat, sore tongue, toothache, hoarseness of voice or difficulty swallowing. Denied any nausea, vomiting, diarrhea or constipation. Denied any hematemesis, melena or hematochezia. Denied any dysuria, frequency or hematuria. Denied any chest pain. Did complain of shortness of breath, but denied any orthopnea or paroxysmal nocturnal dyspnea. Did have cough with yellowish sputum. Denied any chills, rigors, or fever. Denied any dizziness, lightheadedness, or vertigo. PHYSICAL EXAMINATION: GENERAL: On arrival to the Emergency Room, she was somewhat pale. No jaundice, cyanosis, or thyromegaly. No jugular venous distension. No limb edema. VITAL SIGNS: Her heart rate was 102, blood pressure was 139/82, temperature was 98.1, respiratory rate 20, and oxygen saturation was 93% on room air. HEAD, EYES, EARS, NOSE AND THROAT: Showed normocephalic, atraumatic. NECK: Supple. HEART: Showed normal first and second heart sounds with no gallop, rub or murmur. CHEST: Clear to auscultation. She does have some few crepitations on the left side posteriorly. I could not appreciate any rhonchi. ABDOMEN: Distended, soft, nontender. No guarding or rigidity. No organomegaly. All hernial orifice intact. Bowel sounds normal. NEUROLOGIC: She was awake, alert, responding appropriately. All cranial nerves intact. She moves extremities without difficulty. She ambulates without assistance or assisting devices apparently. She just arrived to the Emergency Room, she has scattered wheezing throughout and was in a tripod position using accessory muscles. LABORATORY DATA: On arrival to the Emergency Room showed that her white cell count was 9000, hemoglobin 13.6, hematocrit 41, MCV 95, and platelet count of 199,000 with normal manual differential. Her serum sodium was 142, potassium 3.7, chloride 103, bicarbonate 31, anion gap of 8, BUN 10, creatinine 0.8, estimated GFR was 71 mL per minute. Her glucose was 94, calcium was 9.3 and magnesium was 1.9. Total bilirubin, AST, ALT, alkaline phosphatase were normal. Her troponin was less than 0.017. Her total protein was 7.5, albumin 4. Lipase was 126. Her TSH was 1.951. Her prothrombin time was 9.9, INR of 1, aPTT 25. D-dimer was 0.83. Urinalysis showed the urine was yellow, hazy with a pH of 7, specific gravity 1.005. The urine was negative for protein, glucose, ketones, blood and nitrite. There was moderate amount of leukocyte esterase, no rbc's, 11-20 wbc's and few bacteria. Her chest x-ray showed the heart is normal in size. There is no pleural effusion. There are no confluent infiltrates. There are changes of chronic obstructive pulmonary disease. CT angio of the chest showed that her thyroid is homogenous. There is no adenopathy. There is no pleural effusion. Spleen is generous in size. The liver lesion is not identified in the left upper level. There is mild atelectasis along the left diaphragm, although mild infiltrate is possible. There is elevation of the left hemidiaphragm. There are no other infiltrates or emphysematous changes from chronic obstructive pulmonary disease. There is a small nodule in the image, unchanged from the old study. There is a nodule in the image 71 similar to the old study as well. There is mild atelectasis along the fissure in the left upper lobe. The study is negative for evidence of pulmonary embolus. ASSESSMENT AND PLAN: The patient was admitted with probably left lower lobe infiltrate and chronic obstructive pulmonary disease exacerbation as well as urinary tract infection and she was continued on all her medication and was started on montelukast, ceftriaxone as well as methylprednisolone, Zithromax as well as she was obviously started on Lovenox 80 mg twice a day. CHRISTINA ALAS MD DR: STACY/manjinder JOB#: [id number] / [id number]
[2018-11-13 19:43] VITALS: BP 144/83
[2018-11-13] MEDS: AMITRIPTYLINE HCL 50 MG TABLET PO SCH (21:22)
[2018-11-13] MEDS: MELOXICAM 15 MG TABLET. PO SCH (21:23)
[2018-11-13] MEDS: CARISOPRODOL 350 MG TABLET PO SCH (21:24)
[2018-11-13] MEDS: buPROPion SR 150 MG TABLET.SA PO SCH (21:24)
[2018-11-13] MEDS: MONTELUKAST 10 MG TABLET. PO SCH (21:24)
[2018-11-13 23:29] VITALS: BP 122/72
[2018-11-13] MEDS: ACETAMINOPHEN 325 MG TABLET PO PRN (23:30)
[2018-11-14] MEDS: IV RINGERS SOLUTION,LACTATED 1,000 ML IV SCH ×2 (02:18→16:24)
[2018-11-14] MEDS: BUDESONIDE 0.5 MG/2 ML NEBU NEB SCH ×2 (04:51→20:55)
[2018-11-14] MEDS: IPRATRPIUM/ALBUTEROL 0.5/2.5MG 3 ML NEBU. NEB SCH ×4 (04:51→20:55)
[2018-11-14 05:32] VITALS: BP 133/73
[2018-11-14 06:22] LABS: CALCIUM 9.6 mg/dL (8.5-10.1); CREATININE 0.8 mg/dL (0.6-1.0); GFR 71.3; POTASSIUM 3.8 mmol/L (3.5-5.1)
[2018-11-14] MEDS: methylPREDNISolone SOD SUCC PF 40 MG/ML VIAL. IV SCH ×3 (08:18→20:48)
[2018-11-14] MEDS: ENOXAPARIN 40 MG/0.4 ML SYRINGE. SQ SCH (08:18)
[2018-11-14] MEDS: PANTOPRAZOLE 40 MG TABLET. PO SCH (08:19)
[2018-11-14] MEDS: CALCIUM CARBONATE 500 MG TABLET PO SCH (08:19)
[2018-11-14] MEDS: LACTOBACILLUS RHAMNOSUS GG 1 CAPSULE. PO SCH ×2 (08:19→20:48)
[2018-11-14] MEDS: OMEGA-3 FATTY ACIDS/FISH OIL 1,000 MG CAPSULE. PO SCH ×3 (08:19→20:48)
[2018-11-14] MEDS: AZITHROMYCIN 250 MG TABLET. PO SCH (08:19)
[2018-11-14] MEDS: GABAPENTIN 300 MG CAPSULE. PO SCH ×3 (08:19→20:49)
[2018-11-14] MEDS: ASPIRIN 81 MG TAB.CHEW PO SCH (08:19)
[2018-11-14] MEDS: ROFLUMILAST 500 MCG TABLET PO SCH (08:20)
[2018-11-14 10:42] VITALS: BP 151/81
--- NOTE | 2018-11-14 14:08 | PN ---
DATE: 11/13/2018 SUBJECTIVE: The patient is resting, slightly propped up in bed, in no apparent distress. She continued to have some cough and chest tightness. Denied any chest pain, denied any orthopnea or paroxysmal nocturnal dyspnea. Denied any chills, rigors or fever. PHYSICAL EXAMINATION: GENERAL: When I examined her this afternoon, she looked well, slightly pale, but no jaundice, cyanosis, or thyromegaly. No jugular venous distension. No limb edema. VITAL SIGNS: Her heart rate was 99, blood pressure 137/81, temperature was 98.2, respiratory rate 20 and oxygen saturation was 90%. HEAD, EYES, EARS, NOSE AND THROAT: Normocephalic, atraumatic. NECK: Supple. HEART: Showed normal first and second heart sounds with no gallop, rub or murmur. CHEST: Clear to auscultation. No crepitation or rhonchi. Chest shows central trachea, equal bilateral expansion, good entry, vesicular breath sounds, mostly anterior. She has few basal crepitation mostly on the left side posteriorly. I could not appreciate any rhonchi. ABDOMEN: Slightly distended, soft, nontender. NEUROLOGIC: She was awake, alert, responding appropriately. All cranial nerves intact. She moves extremities without difficulty. She ambulates without assistance or assistive devices. Her intake and output were incompletely recorded. LABORATORY DATA: Her lab work this morning showed a white cell count 7700, hemoglobin 13, hematocrit 39, MCV 95 and platelet count 206,000. Her serum sodium was 142, potassium 4.3, chloride 105, bicarbonate 29, anion gap of 8, BUN 10, creatinine 0.7, estimated GFR was 83 mL per minute. Her glucose 136, calcium was 9.3. Her urine culture is still pending at the time of this dictation. Her venous Doppler ultrasound of both lower extremities showed no evidence of deep vein thrombosis with normal response to augmentation, normal compressibility and demonstrated visualized calves veins are patent. ASSESSMENT: 1. Community-acquired pneumonia with the left lower lobe infiltrate. 2. Acute exacerbation of chronic obstructive pulmonary disease, acute on chronic hypoxic respiratory failure. 3. Questionable urinary tract infection. 4. Fibromyalgia. 5. Generalized osteoarthritis and osteoporosis. PLAN: To cut down her Lovenox to 40 mg once a day. Continue with IV ceftriaxone and oral Zithromax. Continue with Solu-Medrol, montelukast, as well as bronchodilators. We will repeat all her lab works again tomorrow. If she remains stable and improved, she can be discharged home on a tapering course of steroids as well as oral antibiotics. CHRISTINA ALAS MD DR: STACY/manjinder JOB#: [id number] / [id number]
[2018-11-14] MEDS: ACETAMINOPHEN 325 MG TABLET PO PRN (14:36)
[2018-11-14 14:50] VITALS: BP 146/93
[2018-11-14] MEDS: MONTELUKAST 10 MG TABLET. PO SCH (20:48)
[2018-11-14] MEDS: MELOXICAM 15 MG TABLET. PO SCH (20:48)
[2018-11-14] MEDS: buPROPion SR 150 MG TABLET.SA PO SCH (20:48)
[2018-11-14] MEDS: CARISOPRODOL 350 MG TABLET PO SCH (20:49)
[2018-11-14] MEDS: AMITRIPTYLINE HCL 50 MG TABLET PO SCH (20:54)
[2018-11-14 21:15] VITALS: BP 125/73
--- NOTE | 2018-11-15 00:42 | PN ---
DATE: 11/14/2018 SUBJECTIVE: The patient is resting slightly propped up in bed. She continued to have some shortness of breath and chest tightness, although generally much better. She continued to have cough with scanty yellowish sputum. PHYSICAL EXAMINATION: GENERAL: When I examined her this afternoon, she was resting slightly propped up in bed, slightly tachypneic, but there is no pallor, jaundice or cyanosis or thyromegaly. No jugular venous distention. No limb edema. VITAL SIGNS: Her heart rate was 94, blood pressure was 151/81, temperature was 97.7, respiratory rate was 24, and oxygen saturation was 93% on 2 liters of oxygen. HEAD, EYES, EARS, NOSE AND THROAT EYES: Showed normocephalic, atraumatic. NECK: Supple. HEART: Showed normal first and second heart sounds. No gallop, rub or murmur. CHEST: Shows central trachea, reduced expansion, reduced air entry, vesicular sounds with crepitation mostly in the left side posteriorly. I could not really appreciate any rhonchi. ABDOMEN: Distended, soft, nontender. NEUROLOGIC: She was awake, alert, responding appropriately. All cranial nerves are intact. She moves extremities without difficulty. She ambulates with a walker. Her intake over the last 24 hours was 1150, no output was recorded. LABORATORY DATA: Her lab work this morning showed a serum sodium 144, potassium 3.8, chloride 104, bicarbonate 31, anion gap of 9, BUN 10, creatinine 0.8, estimated GFR was 71, glucose 146 and calcium was 9.6. Her white cell count was 7700, hemoglobin 13, hematocrit 39, MCV 95, and platelet count 206,000. Her D-dimer was 0.83 and urinalysis showed moderate amount of leukocyte esterase, no rbc's, 11-20 wbc's and very few bacteria. Her blood culture is so far negative. ASSESSMENT: 1. Community-acquired pneumonia with left lower lobe infiltrate. 2. Acute exacerbation of chronic obstructive pulmonary disease. 3. Acute on chronic hypoxic respiratory failure. 4. Questionable urinary tract infection. 5. Fibromyalgia. 6. Generalized osteoarthritis and osteoporosis. PLAN: Continue with the IV antibiotic. Continue with IV Solu-Medrol, nebulized albuterol and Atrovent, Singulair as well as DVT prophylaxis. She probably could go home tomorrow on oral antibiotics and tapering course of steroids. CHRISTINA ALAS MD DR: STACY/manjinder JOB#: [id number] / [id number]
[2018-11-15] MEDS: IV RINGERS SOLUTION,LACTATED 1,000 ML IV SCH (03:12)
[2018-11-15 05:12] VITALS: BP 135/90
[2018-11-15] MEDS: IPRATRPIUM/ALBUTEROL 0.5/2.5MG 3 ML NEBU. NEB SCH (05:46)
[2018-11-15] MEDS: BUDESONIDE 0.5 MG/2 ML NEBU NEB SCH (05:47)
[2018-11-15] MEDS: ASPIRIN 81 MG TAB.CHEW PO SCH (07:34)
[2018-11-15] MEDS: CALCIUM CARBONATE 500 MG TABLET PO SCH (07:34)
[2018-11-15] MEDS: GABAPENTIN 300 MG CAPSULE. PO SCH (07:34)
[2018-11-15] MEDS: PANTOPRAZOLE 40 MG TABLET. PO SCH (07:34)
[2018-11-15] MEDS: AZITHROMYCIN 250 MG TABLET. PO SCH (07:35)
[2018-11-15] MEDS: LACTOBACILLUS RHAMNOSUS GG 1 CAPSULE. PO SCH (07:35)
[2018-11-15] MEDS: OMEGA-3 FATTY ACIDS/FISH OIL 1,000 MG CAPSULE. PO SCH (07:35)
[2018-11-15] MEDS: ENOXAPARIN 40 MG/0.4 ML SYRINGE. SQ SCH (07:36)
[2018-11-15] MEDS: methylPREDNISolone SOD SUCC PF 40 MG/ML VIAL. IV SCH (07:37)
[2018-11-15] MEDS: ROFLUMILAST 500 MCG TABLET PO SCH (07:37)
[2018-11-15] MEDS ORDERED: PRED20TA PO (08:10)
--- NOTE | 2018-11-15 10:17 | DS ---
DATE OF DISCHARGE: 11/15/2018 ATTENDING PHYSICIAN: Dr. Allen and Dr. Zamudio. FINAL DISCHARGE DIAGNOSES: 1. Community-acquired pneumonia. 2. Left lower lobe infiltrate, improving. 3. Acute on chronic respiratory failure. 4. Fibromyalgia. 5. Generalized arthritis and osteoporosis. HISTORY AND PHYSICAL: This pleasant active 68-year-old female who was admitted through the ED with increasing shortness of breath, cough, congestion and a slight left lower lobe infiltrate. She was admitted to the hospital for inpatient care, IV antibiotics and steroids along with a nebulizer. She already has oxygen at home. She had quit smoking in 2002. PHYSICAL EXAMINATION: Please see the dictated note. PERTINENT LABORATORY AND X-RAY STUDIES: Her hemoglobin on admission was 13.6 g/dL and white count 9000. Chemistry panel showed normal BUN, creatinine and electrolytes. Nonfasting blood sugar of 136. Cholesterol was 233. Chest x-ray as noted a small left lower lobe infiltrate. COURSE IN THE HOSPITAL: The patient was admitted. She received 3 full days of intravenous antibiotics. She did well. Steroids were tapered and she was doing fine. Oxygen saturations were adequate on supplemental oxygen. On the fourth hospital day, the patient's lungs were clear, very minimal wheezing noted. She was ready and wanted to go home. I felt this is reasonable. She already has nebulizer equipment as well as supplemental oxygen at home. At this time, I recommended 7 more days of cephalexin 500 mg p.o. t.i.d., Zithromax 250 p.o. daily for 6 days and prednisone 40 mg daily for 6 days and then stop. I do not think she needs to be tapered at this time. Her other home meds include Neurontin, nebulizer therapy, albuterol, Spiriva are unchanged. She also is on p.r.n. soma. She was discharged then from our hospital in stable condition with explicit instructions and followup care. HARINI ZAMUDIO MD DR: LIEN/manjinder JOB#: [id number] / [id number] CHRISTINA Ferguson MD
== END 2018-11-15 09:12 | disposition home or self-care (01) | DRG 193 ==
LOC: ER 17:58 → 1 SOUTH 20:30
PROVIDERS: ADMIT Internal Medicine; ATTEND Internal Medicine
DX: J18.9 Pneumonia, unspecified organism (principal); J96.21 Acute and chronic respiratory failure with hypoxia; J44.1 Chronic obstructive pulmonary disease with (acute) exacerbation; J44.0 Chronic obstructive pulmonary disease with (acute) lower respiratory infection; N39.0 Urinary tract infection, site not specified; F41.9 Anxiety disorder, unspecified; K21.9 Gastro-esophageal reflux disease without esophagitis; E78.00 Pure hypercholesterolemia, unspecified; M79.7 Fibromyalgia; M81.0 Age-related osteoporosis without current pathological fracture; M15.9 Polyosteoarthritis, unspecified; Z90.710 Acquired absence of both cervix and uterus; Z90.49 Acquired absence of other specified parts of digestive tract; Z99.81 Dependence on supplemental oxygen; Z87.442 Personal history of urinary calculi; Z82.49 Family history of ischemic heart disease and other diseases of the circulatory system; Z87.891 Personal history of nicotine dependence
CPT/HCPCS: 36415; 71046; 71275; 80048; 80061; 80076; 81001; 82550; 83690; 83735; 83880; 84443; 84484; 85025; 85379; 85610; 85730; 87040; 87086; 93970; 94640; 96361; 96374; 96375; G0238; J0456; J0696; J1650; J2920; J2930; J7120; J7620; J7626; Q9967; 99285-25

== ENCOUNTER 2019-03-21 12:20 | Inpatient (IN) | payer MEDICARE, OTHER ==
[~2019-03-21] VITALS: Ht 162.6 cm; Wt 83.1 kg
[~2019-03-21 12:20] MED LIST changes: +BUPR150T8 PO; +PRED20TA PO
[2019-03-21] MEDS ORDERED: IV NORMAL SALINE 1,000ML 1,000 ML IV ONE (12:30)
[2019-03-21 12:51] LABS: BASO % 1 % (0-3); EOS # 0.6 x10^3/uL (0.0-0.7); EOS % 8 % (0-3); HEMATOCRIT 42.1 % (36.0-47.0); HEMOGLOBIN 13.7 g/dL (12.0-15.5); LYMPH # 1.5 x10^3/uL (1.0-4.8); LYMPH % 23 % (24-48); MEAN CORPUSCULAR HEMOGLOBIN 30 pg (25-35); MEAN CORPUSCULAR HGB CONC 33 g/dL (31-37); MEAN CORPUSCULAR VOLUME 93 fL (79-100); MONO # 0.6 x10^3/uL (0.0-1.1); MONO % 9 % (0-9); NEUT % 60 % (31-73); PLATELET COUNT 210 x10^3/uL (140-400); RED BLOOD COUNT 4.51 x10^6/uL (3.50-5.40); RED CELL DISTRIBUTION WIDTH 12.9 % (11.5-14.5); WHITE BLOOD COUNT 6.8 x10^3/uL (4.0-11.0)
--- NOTE | 2019-03-21 13:06 | RAD ---
CT HEAD WO CONTRAST History: Altered mental status Comparison: None. Technique: Noncontrast CT imaging was performed of the head. Exposure: One or more of the following individualized dose reduction techniques were utilized for this examination: 1. Automated exposure control 2. Adjustment of the mA and/or kV according to patient size 3. Use of iterative reconstruction technique. Findings: There is mild motion degradation. No acute extra-axial or parenchymal hemorrhage is identified. There is no significant intra-axial mass effect, midline shift, or extra-axial fluid collection. The trujillo-white differentiation of the major vascular territories is preserved. Ventricular size is within normal limits. There is a focus of lower density of the left frontal white matter, also subtle low-density of the right frontal white matter. Mastoid air cells are mostly aerated, minimal density bilaterally. There is mild bilateral ethmoid air cell mucosal thickening. No acute calvarial abnormality is identified. Impression: 1. There is no evidence of acute intracranial hemorrhage. There is focus of lower density of the left frontal white matter which is nonspecific, may be due to chronic microvascular ischemic disease as there appears to be a lesser degree of similar findings on the right. MRI would more accurately characterize for more recent ischemia or mass. Electronically signed by: Scottie Sharma MD (03/21/2019 1:03 PM) [email or web address]
--- NOTE | 2019-03-21 13:07 | RAD ---
PORTABLE CHEST 1V History: Altered mental status Comparison: November 12, 2018 Findings: Single view of the chest is submitted. Pericardial cardiac silhouette is stable. There is no new lobar consolidation, pleural fluid, pneumothorax. There is suspected emphysema. Impression: 1. No acute radiographic abnormality is identified. Electronically signed by: Scottie Sharma MD (03/21/2019 1:04 PM) [email or web address]
[2019-03-21 13:23] LABS: ALBUMIN 3.7 g/dL (3.4-5.0); ALBUMIN/GLOBULIN RATIO 1.1 (1.0-1.7); CALCIUM 8.7 mg/dL (8.5-10.1); CREATININE 1.6 mg/dL (0.6-1.0); GFR 32.1; MAGNESIUM 1.8 mg/dL (1.8-2.4); POTASSIUM 3.9 mmol/L (3.5-5.1); TOTAL BILIRUBIN 0.4 mg/dL (0.2-1.0)
[2019-03-21] MEDS ORDERED: ASPIRIN RECTAL 300 MG SUPP. PR ONE (13:30)
--- NOTE | 2019-03-21 14:02 | PHYS DOC ---
Past History Past Medical History: Anxiety, Arthritis, COPD, Fibromyalgia, GERD, High Cholesterol Past Surgical History: Cholecystectomy, Hysterectomy, Tonsillectomy Smoking: Non-smoker Alcohol Use: None Drug Use: None Adult General Chief Complaint Chief Complaint: NEURO SYMPTOMS/DEFICITS HPI HPI Patient is a 68 y/o female with a history COPD and sciatica who presents to the ED with ataxia for the past 1 week. She also states she has had memory issues and confusion in the past month. She describes feeling unstable when walking and has to correct herself regularly so she does not fall over. Patient says sometimes she has to hold on to objects or people for support as well. Denies any fever, dysuria, recent falls. Per pt's family she has been acting different for the past month and has been progressively worsening. She is regularly on oxygen at home for COPD. Complains of associated knee pain. Review of Systems Review of Systems Constitutional: Denies fever or chills Eyes: Denies redness or eye pain HENT: Denies nasal congestion or sore throat Respiratory: Denies cough or shortness of breath Cardiovascular: Denies chest pain or palpitations GI: Denies abdominal pain, nausea, or vomiting : Denies dysuria or hematuria Musculoskeletal: knee pain Integument: Denies rash or skin lesions Neurologic: Denies headache or sensory changes: Reports ataxia Complete systems were reviewed and found to be within normal limits, except as documented in this note. Current Medications Current Medications Current Medications Medications (Trade) Dose Ordered Sig/Tereso Start Time Stop Time Status Last Admin Dose Admin Aspirin (Aspirin Rectal Supp) 300 mg 1X ONCE 03/21/19 13:30 03/21/19 13:31 DC Sodium Chloride 1,000 ml @ 1,000 mls/hr 1X ONCE 03/21/19 12:30 03/21/19 13:29 DC 03/21/19 13:17 1,000 MLS/HR Allergies Allergies Allergies Coded Allergies Type Severity Reaction Last Updated Verified No Known Drug Allergies 03/21/19 No Physical Exam Physical Exam Constitutional: Well developed, well nourished, no acute distress, non-toxic appearance HENT: Normocephalic, atraumatic, oropharynx moist Eyes: PERRL, EOMI, conjunctiva normal, no discharge Neck: Normal range of motion, no tenderness, supple Cardiovascular: Heart rate normal, regular rhythm Lungs & Thorax: Bilateral breath sounds clear to auscultation, no wheezing Skin: Warm, dry, no erythema, no rash Back: No tenderness, no CVA tenderness Extremities: No tenderness, ROM intact, no edema Neurologic: Alert and oriented X 3, normal sensory function, speech slightly slurred, mild expressive aphasia noted, drift without touching of BLE Psychologic: Affect normal, judgement normal Current Patient Data Vital Signs Vital Signs Date Time Temp Pulse Resp B/P (MAP) Pulse Ox O2 Delivery O2 Flow Rate FiO2 03/21/19 13:15 87 11 117/78 (91) 97 Nasal Cannula 2.0 03/21/19 12:25 97.7 Lab Results Laboratory Tests Test 03/21/19 12:32 White Blood Count 6.8 x10^3/uL (4.0-11.0) Red Blood Count 4.51 x10^6/uL (3.50-5.40) Hemoglobin 13.7 g/dL (12.0-15.5) Hematocrit 42.1 % (36.0-47.0) Mean Corpuscular Volume 93 fL (79-100) Mean Corpuscular Hemoglobin 30 pg (25-35) Mean Corpuscular Hemoglobin Concent 33 g/dL (31-37) Red Cell Distribution Width 12.9 % (11.5-14.5) Platelet Count 210 x10^3/uL (140-400) Neutrophils (%) (Auto) 60 % (31-73) Lymphocytes (%) (Auto) 23 % (24-48) L Monocytes (%) (Auto) 9 % (0-9) Eosinophils (%) (Auto) 8 % (0-3) H Basophils (%) (Auto) 1 % (0-3) Neutrophils # (Auto) 4.0 x10^3uL (1.8-7.7) Lymphocytes # (Auto) 1.5 x10^3/uL (1.0-4.8) Monocytes # (Auto) 0.6 x10^3/uL (0.0-1.1) Eosinophils # (Auto) 0.6 x10^3/uL (0.0-0.7) Basophils # (Auto) 0.0 x10^3/uL (0.0-0.2) Prothrombin Time 10.1 SEC (9.4-11.4) Prothrombin Time INR 1.0 (0.9-1.1) Activated Partial Thromboplast Time 26 SEC (23-33) Sodium Level 142 mmol/L (136-145) Potassium Level 3.9 mmol/L (3.5-5.1) Chloride Level 101 mmol/L (98-107) Carbon Dioxide Level 29 mmol/L (21-32) Anion Gap 12 (6-14) Blood Urea Nitrogen 15 mg/dL (7-20) Creatinine 1.6 mg/dL (0.6-1.0) H Estimated GFR (Cockcroft-Gault) 32.1 BUN/Creatinine Ratio 9 (6-20) Glucose Level 92 mg/dL (70-99) Lactic Acid Level 1.9 mmol/L (0.4-2.0) Calcium Level 8.7 mg/dL (8.5-10.1) Magnesium Level 1.8 mg/dL (1.8-2.4) Total Bilirubin 0.4 mg/dL (0.2-1.0) Aspartate Amino Transferase (AST) 15 U/L (15-37) Alanine Aminotransferase (ALT) 12 U/L (14-59) L Alkaline Phosphatase 104 U/L (46-116) Ammonia 10 mcmol/L (11-34) L Creatine Kinase 60 U/L (26-192) Creatine Kinase MB (Mass) 0.7 ng/mL (0.0-3.6) Creatine Kinase MB Relative Index 1.2 % (0-4) Troponin I Quantitative < 0.017 ng/mL (0-0.055) AP-Pqn-I-Type Natriuretic Peptide 87 pg/mL (0-124) Total Protein 7.0 g/dL (6.4-8.2) Albumin 3.7 g/dL (3.4-5.0) Albumin/Globulin Ratio 1.1 (1.0-1.7) EKG EKG ECG @ 1241 on 03/21/19, 91 BPM, NSR, no ST-elevation Radiology/Procedures Radiology/Procedures PROCEDURE: CT HEAD WO CONTRAST CT HEAD WO CONTRAST History: Altered mental status Comparison: None. Technique: Noncontrast CT imaging was performed of the head. Exposure: One or more of the following individualized dose reduction techniques were utilized for this examination: 1. Automated exposure control 2. Adjustment of the mA and/or kV according to patient size 3. Use of iterative reconstruction technique. Findings: There is mild motion degradation. No acute extra-axial or parenchymal hemorrhage is identified. There is no significant intra-axial mass effect, midline shift, or extra-axial fluid collection. The trujillo-white differentiation of the major vascular territories is preserved. Ventricular size is within normal limits. There is a focus of lower density of the left frontal white matter, also subtle low-density of the right frontal white matter. Mastoid air cells are mostly aerated, minimal density bilaterally. There is mild bilateral ethmoid air cell mucosal thickening. No acute calvarial abnormality is identified. Impression: 1. There is no evidence of acute intracranial hemorrhage. There is focus of lower density of the left frontal white matter which is nonspecific, may be due to chronic microvascular ischemic disease as there appears to be a lesser degree of similar findings on the right. MRI would more accurately characterize for more recent ischemia or mass. Electronically signed by: Scottie Sharma MD (03/21/2019 1:03 PM) [email or web address] PROCEDURE: PORTABLE CHEST 1V PORTABLE CHEST 1V History: Altered mental status Comparison: November 12, 2018 Findings: Single view of the chest is submitted. Pericardial cardiac silhouette is stable. There is no new lobar consolidation, pleural fluid, pneumothorax. There is suspected emphysema. Impression: 1. No acute radiographic abnormality is identified. Electronically signed by: Scottie Sharma MD (03/21/2019 1:04 PM) [email or web address] Course & Med Decision Making Course & Med Decision Making Pt presents with 1 week of ataxia and 1 month of worsening memory and confusion. NIHSS 4 due to some dysarthria and some expressive aphasia and bilateral lower extremity drift without touching. CT shows no acute ischemic changes, CXR w/ no acute process. Labs obtained and posted to chart. Patient requiring admission for further evaluation and treatment. Discussed with Dr. Allen (hospitalist) who is in agreement with admission. Discussed findings and plan with patient and family, who acknowledge understanding and agreement. Dragon Disclaimer Dragon Disclaimer This electronic medical record was generated, in whole or in part, using a voice recognition dictation system. Departure Departure: Impression: Primary Impression: Weakness Additional Impressions: Dysarthria Expressive aphasia Urinary tract infection Acute renal insufficiency Disposition: ADMITTED INPATIENT Admitting Physician: Adela Allen Condition: GUARDED Referrals: KEISHA PRICE DO (PCP) Scripts Cefdinir (CEFDINIR) 300 Mg Capsule 1 CAP PO BID for uti for 4 Days, #8 CAP Prov: ADELA ALLEN MD 03/24/19 NIHSS - ED NIH Stroke Scale: NIH Stroke Scale Response (Comments) Value Level of Consciousness: 0 Alert/Responsive 0 LOC Questions: 0 Answers both correctly 0 LOC Commands: 0 Performs both tasks 0 Best Gaze: 0 Normal 0 Visual: 0 No visual loss 0 Facial Palsy: 0 Normal, symmetrical 0 Motor - Left Arm 0 No drift 0 Motor - Right Arm 0 No drift 0 Motor - Left Leg 1 Drift but can hold 1 Motor: Right Leg 1 Drift but can hold 1 Limb Ataxia: 0 Absent 0 Sensory: 0 No loss 0 Best Language: 1 Mild to mod aphasia 1 Dysathria: 1 Mild to moderate 1 Extinction and Inattention: 0 Normal 0 Total 4 Critical Care Time Critical care time was 30 minutes which includes time at bedside, spent in discussion of patient's care with specialists and/or family members, with interpretation of laboratory and/or radiological studies and is exclusive of procedures. Problem Qualifiers Additional Impressions: Urinary tract infection Urinary tract infection type: acute cystitis Hematuria presence: with hematuria Qualified Codes: N30.01 - Acute cystitis with hematuria JIM MERCADO DO Mar 21, 2019 14:02
[2019-03-21 14:28] LABS: AMPHETAMINE/METHAMPHETAMINE NEG (NEG); BARBITURATES NEG (NEG); BENZODIAZEPINES NEG (NEG); CANNABINOIDS NEG (NEG); COCAINE NEG (NEG); METHADONE NEG (NEG); OPIATES NEG (NEG); PHENCYCLIDINE NEG (NEG)
[2019-03-21 14:33] LABS: BACTERIA,URINE MANY /HPF (0-FEW); BILIRUBIN,URINE NEG (NEG); CLARITY,URINE CLOUDY; COLOR,URINE YELLOW; GLUCOSE,URINE NEG (NEG); NITRITE,URINE POS (NEG); RBC,URINE OCC /HPF (0-2); SQUAMOUS EPITHELIAL CELL,UR OCC /LPF; UROBILINOGEN,URINE 0.2 mg/dL (0.2 mg/dL); WBC,URINE TNTC /HPF (0-4)
[2019-03-21] MEDS ORDERED: IV NORMAL SALINE 1,000ML 1,000 ML IV SCH (14:33)
[2019-03-21] MEDS ORDERED: cefTRIAXone IM 1 GM VIAL IM ONE (14:44)
[2019-03-21] MEDS ORDERED: IV NORMAL SALINE 50ML 50 ML ONE (14:44)
--- NOTE | 2019-03-21 14:48 | EKG ---
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
--- NOTE | 2019-03-21 15:53 | NUR ---
PT ORIENTED TO ROOM AND UNIT, BED LOW AND LOCKED, SIDE RAILS UP X3, CALL LIGHT IN REACH. TELE APPLIED TO PT. WILL CONTINUE TO ASSESS.
[2019-03-21 15:59] VITALS: BP 125/50
--- NOTE | 2019-03-21 16:39 | NUR ---
SPOKE WITH DR. HOUSTON ABOUT PT AND INFORMED HM PT WAS ADMITTED TO ROOM 124.
[2019-03-21] MEDS: IV DEXTROSE 5% - 0.9 % NACL 1,000 ML IV SCH (19:32)
[2019-03-21 19:54] VITALS: BP 113/71
[2019-03-21] MEDS ORDERED: CARI250T PO (20:22)
[2019-03-21] MEDS ORDERED: MELO15TA23 PO (20:22)
[2019-03-21] MEDS ORDERED: HYDR200T5 PO (20:22)
[2019-03-21] MEDS ORDERED: ALBUTEROL SULFATE 2.5 MG/3 ML NEBU. NEB PRN (20:30)
--- NOTE | 2019-03-21 21:12 | NUR ---
Went over plan of care with patient, patient voiced understanding. Patient denies pain at this time. Patient states that she feels better than she did when she was in the ER. She says that her balance is much better and feels like her speech is better as well. Neuro checks every 4 hours initiated. Call light within reach. Will continue to monitor.
[2019-03-21] MEDS: CARISOPRODOL 350 MG TABLET PO SCH (21:19)
[2019-03-21] MEDS: buPROPion SR 150 MG TABLET.SA PO SCH (21:19)
[2019-03-21] MEDS: GABAPENTIN 300 MG CAPSULE. PO SCH (21:19)
[2019-03-21] MEDS: MELOXICAM 15 MG TABLET. PO SCH (21:19)
[2019-03-21] MEDS: AMITRIPTYLINE HCL 50 MG TABLET PO SCH (21:19)
--- NOTE | 2019-03-21 22:30 | CONS ---
DATE OF CONSULTATION: NEURO CONSULT REFERRING PHYSICIAN: Dr. Allen. REASON FOR CONSULTATION: Dizziness, memory loss and unsteady gait. HISTORY OF PRESENT ILLNESS: This is a 68-year-old right-handed female, who has had a 2-week history of worsening of impaired balance, difficulty finding words and tendency to fall. According to the patient, she has had impaired balance for several months, but that has progressively gotten worse in the last 2 weeks. She would hold on things to prevent herself from falling. She has recently noticed difficulty finding some words and completing sentences. She also complains of intermittent lower abdominal pain and increased urinary frequencies. According to her , she has had slowly progressive memory loss in the last 1 year or so. Currently, she denies headaches, visual disturbances, nausea, vomiting, chest pain, but she complains of shortness of breath and related that to COPD. She denies chills, fever, hematuria, or hematemesis. She described her dizziness and unsteadiness. Initial nonenhanced head CT scan revealed no evidence of acute intracranial process, but shows chronic small-vessel ischemic disease. PAST MEDICAL HISTORY: Significant for recurrent urinary tract infections, chronic lower back pain radiating into the lower extremities and associated with numbness and paresthesia, hypertension, hyperlipidemia, COPD, GERD, urinary incontinence, fibromyalgia, history of osteoporosis and depression. PAST SURGICAL HISTORY: Significant for: 1. Tonsillectomy. 2. Cholecystectomy. 3. Hysterectomy. SOCIAL HISTORY: The patient is . She denies smoking, alcohol drinking, or illicit drug use. FAMILY HISTORY: Mother had diabetes mellitus and cancer. CURRENT HOME MEDICATIONS: Albuterol inhaler; amitriptyline 100 mg daily; bupropion, Wellbutrin XR 150 mg daily; calcium 500 mg daily; Advair inhaler; gabapentin 600 mg t.i.d.; fish oil; pantoprazole 40 mg daily; Spiriva 18 mcg daily. ALLERGIES: No known drug allergies. REVIEW OF SYSTEMS: A 10-point review of system was performed as mentioned above in history of present illness. PHYSICAL EXAMINATION: GENERAL: Well-developed, well-nourished female, not in acute distress. She weighs 82 kilos. VITAL SIGNS: Blood pressure 125/50, respiratory rate 20, pulse is 91, temperature 97.3, oxygen saturation 92% on 2 liters by nasal cannula. HEENT: Normocephalic, atraumatic, otherwise unremarkable. NECK: Supple. Negative for carotid bruit, lymphadenopathy or thyromegaly. LUNGS: Clear to A and P. CARDIOVASCULAR: Regular rate and rhythm, normal S1, S2. There is no S3, S4 or murmur. ABDOMEN: Soft. Bowel sounds positive. No palpable mass or organomegaly or tenderness. EXTREMITIES: Negative for cyanosis, clubbing or pitting edema. NEUROLOGICAL: MENTAL STATUS: The patient is alert and oriented x 3. The speech is fluent. There is no language dysfunction. The patient recalls 1/3 immediately and 0/3 after 1 and 3 minutes. Judgment and abstract thinking are fair. The patient denies hallucination or delusion. CRANIAL NERVES: Visual root are full. The pupils are reactive to light and accommodation. The extraocular movements are intact. There is no nystagmus. There is no facial motor or sensory deficit. Hearing is intact bilaterally. The palate is elevated symmetrically. Sternocleidomastoid muscles are powerful bilaterally. The patient shrugs her shoulders symmetrically and protrudes her tongue in the midline without fasciculation or atrophy. MOTOR: No focal muscle bulk was seen. The tone is normal. The strength is 5/5 throughout. SENSORY EXAMINATION: Revealed diminished pinprick and light touch senses in patchy distributions in distal lower extremities. Deep tendon reflexes were symmetric and hypoactive with absent Achilles responses. GAIT: The tandem gait is difficult. The patient has tendency to fall. Romberg's sign is positive. LABORATORY DATA: CBC revealed white blood cells of 6.8 thousand, hemoglobin 13.7, hematocrit 42.1, platelet count 210,000. Chemistry revealed sodium of 142, potassium 3.9, chloride 101, CO2 of 29, BUN 15, creatinine 1.6, glucose 92 and calcium is 8.7, magnesium is normal. Liver enzymes are not elevated. Cardiac enzymes are normal with normal troponin level. Urinalysis is positive for urinary tract infections with positive nitrite and large urinary leukocyte esterase along with many bacteria and many white blood cell counts. Urine drug screen is negative. DIAGNOSTIC DATA: Head CT scan as mentioned above in history of present illness. IMPRESSION: 1. Urinary tract infections. 2. Mild dehydration with elevated creatinine. 3. Impaired balance, rule out lumbosacral radiculopathy versus peripheral neuropathy in the lower extremities. 4. Slowly progressive memory loss with chronic small vessel ischemic changes, possibly early dementia of vascular type. 5. Chronic low back pain, rule out lumbosacral radiculopathy versus peripheral neuropathy in the lower extremities. 6. Multiple medical problems include hypertension, hyperlipidemia and chronic obstructive pulmonary disease. 7. Depression. RECOMMENDATIONS: 1. We will check thyroid profile, vitamin B12 and RPR. 2. Treat underlying management for urinary tract infections. 3. We will arrange for EMG/NCS on an outpatient basis to rule out lumbosacral radiculopathy versus peripheral neuropathy in the lower extremities. 4. Physical therapy evaluation. 5. Careful hydration. 6. If necessary, we will arrange for EEG or electroencephalogram to be done on an outpatient basis. M Fer HOUSTON MD DR: BALJIT/manjinder JOB#: [id number] / [id number]
[2019-03-21 22:45] VITALS: BP 105/69
[2019-03-22] MEDS: IV DEXTROSE 5% - 0.9 % NACL 1,000 ML IV SCH ×2 (02:30→12:30)
[2019-03-22 05:09] VITALS: BP 132/82
[2019-03-22] MEDS ORDERED: FLU VAX QS 2019-20 (36MOS+)/PF 0.5 ML SYRINGE. VAX IM ONE (09:00)
[2019-03-22] MEDS: PANTOPRAZOLE 40 MG TABLET. PO SCH (09:19)
[2019-03-22] MEDS: MONTELUKAST 10 MG TABLET. PO SCH (09:19)
[2019-03-22] MEDS: GABAPENTIN 300 MG CAPSULE. PO SCH ×3 (09:19→21:31)
[2019-03-22] MEDS: buPROPion SR 150 MG TABLET.SA PO SCH ×2 (09:19→21:30)
[2019-03-22] MEDS: HYDROXYCHLOROQUINE 200 MG TABLET PO SCH (09:20)
[2019-03-22 10:41] VITALS: BP 144/89
[2019-03-22 15:18] LABS: CALCIUM 8.4 mg/dL (8.5-10.1); CREATININE 0.8 mg/dL (0.6-1.0); GFR 71.3; POTASSIUM 4.5 mmol/L (3.5-5.1)
[2019-03-22 15:26] VITALS: BP 132/78
[2019-03-22] MEDS ORDERED: ACETAMINOPHEN 325 MG TABLET PO PRN (15:30)
--- NOTE | 2019-03-22 15:57 | HP ---
ADMIT DATE: 03/21/2019 HISTORY OF PRESENT ILLNESS: The patient is a 68-year-old female patient, who presented to the Emergency Department with ataxia for the past one week. She also stated that she has had memory issues and confusion in the past month. She describes feeling unstable when walking, has to correct herself regularly, so she does not fall over. She stated that she has sometimes she has to hold on to objects or people for support as well, sometimes has difficulty finding words. Per patient's family, she has been acting different for the past month and has been progressively worsening. She is regularly on oxygen at home. She also complains of associated knee pain. She was extensively investigated in the Emergency Room. Her lab work showed white cell count was normal. She has mildly elevated serum creatinine. Her urinalysis showed the urine was positive for nitrite. There was large amount of leukocyte esterase, too numerous to count, wbc's and many bacteria. Her toxic screen was essentially negative. The patient was admitted with weakness, dysarthria, expressive aphasia, urinary tract infection and acute renal failure. Her CT scan showed there is no evidence of acute intracranial hemorrhage. There is focus of low density in the left frontal white matter, which is nonspecific, may be due to chronic microvascular ischemic disease. There appears to be a lesser degree of similar finding in the right. MRI would more accurately characterize for more recent ischemia or mass. She was started on IV antibiotic in the form of Rocephin and continued all of her medication and we have consulted Dr. Grace to assist with her management. PAST MEDICAL HISTORY: Significant for chronic obstructive pulmonary disease, fibromyalgia, generalized osteoarthritis. She also has a history of nephrolithiasis. PAST SURGICAL HISTORY: Significant for arthroscopic surgery of the left knee, tonsillectomy, cholecystectomy, total abdominal hysterectomy, bilateral salpingo-oophorectomy. She did also have a colonoscopy and polypectomy. ALLERGIES: She has no known drug allergies. FAMILY HISTORY: She has 1 brother and 2 sisters, all younger and healthy. Her father and her mother are alive at the age of 89, have hypertension. She does not know her biological father. SOCIAL HISTORY: She is , has a son and a daughter. She is an ex-smoker, quit in 2002. She does not drink alcohol or use recreational drugs. 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 She has smoked about a pack a day for more than 30 years. ALLERGIES: She has no known drug allergies. MEDICATIONS: She is currently on following medications: She is on hydroxychloroquine sulfate 200 mg once a day, albuterol sulfate 2.5 mg 3 mL by nebulizer every 4 hours, Soma 350 mg at bedtime, meloxicam 15 mg at bedtime, gabapentin 600 mg 3 times a day, amitriptyline 100 mg at bedtime, Wellbutrin-SR 150 mg twice a day, montelukast 10 mg at bedtime and Protonix 40 mg daily. PHYSICAL EXAMINATION: GENERAL: On arrival to the Emergency Room, she looked well and was clearly in no apparent respiratory distress. No pallor, jaundice, cyanosis or thyromegaly. No jugular venous distention. No limb edema. VITAL SIGNS: Her heart rate was 91, blood pressure was 102/64, temperature was 97.7, respiratory rate was 18 and oxygen saturation was 89% on room air, was up to 93% on 3 liters of oxygen. HEAD, EYES, EARS, NOSE AND THROAT: Showed normocephalic, atraumatic. NECK: Supple. HEART: Showed normal first and second heart sounds. No gallop or murmur. CHEST: Clear to auscultation. No crepitation or rhonchi. Central trachea. Equal bilateral expansion, air entry with bilateral crepitation. I could not appreciate any rhonchi. ABDOMEN: Distended, soft, nontender. NEUROLOGIC: She is awake, alert, responding appropriately. All cranial nerves intact. EXTREMITIES: She moves extremities without difficulty. She ambulates normally with a walker. LABORATORY DATA: Her lab work showed white cell count 6800, hemoglobin was 13.7, hematocrit 42, MCV 93, and platelet count of 210,000 with normal manual differential. Her chemistry showed a serum sodium 142, potassium 3.9, chloride 101, bicarbonate 29, anion gap of 12, BUN 15, creatinine 1.6, estimated GFR was 32 mL per minute. Her glucose was 92, calcium was 8.7. Total bilirubin, AST, ALT, alkaline phosphatase were normal. Total protein was 7, albumin was 3.7. Her prothrombin time, INR and aPTT are all normal. Urinalysis showed the urine was yellow, cloudy with a pH of 5.5, specific gravity of 1.020. The urine was negative for protein, glucose, ketones, there is small amount of blood, positive for nitrite, negative for bilirubin, there was large amount of leukocyte esterase, occasional rbc's, too numerous to count wbc's and too many bacteria. Her tox screen was negative. IMAGING STUDIES: Her CT scan of the head showed no evidence of acute intracranial hemorrhage. Chest x-ray showed pericardial, cardiac silhouette is stable. There is no lobar consolidation, pleural fluid or pneumothorax. There is suspected emphysema. ASSESSMENT AND PLAN: In summary, this is a 68-year-old female patient who was admitted with impaired balance, slowly progressive memory loss and expressive aphasia, urinary tract infection, acute kidney injury and chronic low back pain. OTHER MEDICAL PROBLEMS: Include: A. Hypertension. B. Hyperlipidemia. C. Chronic obstructive pulmonary disease. D. Depression. The plan is to continue with IV ceftriaxone. We have consulted also the Speech Therapy to evaluate her. She has episodes of having difficulty swallowing. She has also hoarseness of voice. We have already consulted Dr. Grace to assist with her evaluation. CHRISTINA ALAS MD DR: STACY/manjinder JOB#: [id number] / [id number]
[2019-03-22] MEDS: IPRATRPIUM/ALBUTEROL 0.5/2.5MG 3 ML NEBU. NEB SCH ×2 (16:42→20:31)
[2019-03-22 19:36] VITALS: BP 126/76
[2019-03-22] MEDS: LACTOBACILLUS RHAMNOSUS GG 1 CAPSULE. PO SCH (21:30)
[2019-03-22] MEDS: CARISOPRODOL 350 MG TABLET PO SCH (21:31)
[2019-03-22] MEDS: MELOXICAM 15 MG TABLET. PO SCH (21:31)
[2019-03-22] MEDS: AMITRIPTYLINE HCL 50 MG TABLET PO SCH (21:33)
[2019-03-22 22:59] VITALS: BP 118/74
[2019-03-23] MEDS: IV DEXTROSE 5% - 0.9 % NACL 1,000 ML IV SCH (00:29)
--- NOTE | 2019-03-23 00:59 | PN ---
DATE: 03/22/2019 SUBJECTIVE: The patient denies any new medical or neurological complaints. Her dizziness has been improved and she walks without stumbling. She denies headaches, visual disturbances, nausea, vomiting, chest pain, shortness of breath or palpitation. OBJECTIVE: GENERAL: Well-developed, well-nourished female, not in acute distress. VITAL SIGNS: Afebrile, temperature 97.6, oxygen saturation 91% on 2 liters by nasal cannula, blood pressure 126/76, respiratory rate 20 and pulse is 92 and regular. HEENT: Normocephalic, atraumatic, otherwise unremarkable. NECK: Supple. Negative for carotid bruit, lymphadenopathy or thyromegaly. LUNGS: Clear to A and P. CARDIOVASCULAR: Regular rhythm, normal S1, S2. There is no S3, S4 or murmur. ABDOMEN: Soft. Bowel sounds positive. EXTREMITIES: Negative for cyanosis, clubbing, or edema. NEUROLOGICAL EXAMINATION: Mental status: The patient is alert and oriented x 3. The speech is fluent. There is no language dysfunction. The patient recalls 2/3 immediately and 1/3 after 1 and 3 minutes. Judgment and abstract thinking are fair. The patient denies hallucination or delusion. Cranial nerves are intact. No focal motor or sensory deficit. The strength was 5/5 throughout. Sensory examination revealed diminished pinprick and light touch senses in patchy distributions in both lower extremities. Deep tendon reflexes were symmetric and hypoactive with absent Achilles responses. Romberg sign still positive. IMPRESSION: 1. Impaired balance with abnormal tandem gait. 2. Urinary tract infections. 3. Multiple medical problems include slowly progressive memory loss, chronic lower back pain, rule out radiculopathy versus peripheral neuropathy in the lower extremities, hypertension, hyperlipidemia, chronic obstructive pulmonary disease and depression. RECOMMENDATIONS: Continue with current management initiated by Dr. Allen and continue with previous neurological recommendations. M Fer HOUSTON MD DR: BALJIT/manjinder JOB#: [id number] / [id number]
[2019-03-23] MEDS: IPRATRPIUM/ALBUTEROL 0.5/2.5MG 3 ML NEBU. NEB SCH ×4 (05:17→21:21)
[2019-03-23 05:49] VITALS: BP 129/78
[2019-03-23 07:20] LABS: HEMATOCRIT 38.3 % (36.0-47.0); HEMOGLOBIN 12.6 g/dL (12.0-15.5); RED BLOOD COUNT 4.09 x10^6/uL (3.50-5.40); RED CELL DISTRIBUTION WIDTH 12.8 % (11.5-14.5); WHITE BLOOD COUNT 4.3 x10^3/uL (4.0-11.0)
[2019-03-23 07:37] LABS: ALBUMIN 3.1 g/dL (3.4-5.0); CALCIUM 8.2 mg/dL (8.5-10.1); CREATININE 0.7 mg/dL (0.6-1.0); GFR 83.2; POTASSIUM 3.7 mmol/L (3.5-5.1); TOTAL BILIRUBIN 0.2 mg/dL (0.2-1.0); TOTAL PROTEIN 6.1 g/dL (6.4-8.2)
[2019-03-23] MEDS: LACTOBACILLUS RHAMNOSUS GG 1 CAPSULE. PO SCH ×2 (08:02→20:22)
[2019-03-23] MEDS: GABAPENTIN 300 MG CAPSULE. PO SCH ×3 (08:03→20:22)
[2019-03-23] MEDS: HYDROXYCHLOROQUINE 200 MG TABLET PO SCH (08:03)
[2019-03-23] MEDS: PANTOPRAZOLE 40 MG TABLET. PO SCH (08:03)
[2019-03-23] MEDS: MONTELUKAST 10 MG TABLET. PO SCH (08:03)
[2019-03-23] MEDS: buPROPion SR 150 MG TABLET.SA PO SCH ×2 (08:03→20:22)
[2019-03-23 10:50] VITALS: BP 136/78
--- NOTE | 2019-03-23 11:12 | PN ---
DATE: 03/23/2019 SUBJECTIVE: The patient is sitting slightly propped up in bed, in no apparent distress. She, on questioning her, denied any complaint except that she has some chest tightness and wheezing for which she is getting her nebulized treatment. Her urine culture is still pending at the time of this dictation. She continues to have unsteady gait and we discussed the option of going into a alf facility. She seemed to be agreeable to her. PHYSICAL EXAMINATION: GENERAL: When I examined her, she was somewhat pale. No jaundice, cyanosis or thyromegaly. No jugular venous distention. No lower limb edema. VITAL SIGNS: Her heart rate was 88, blood pressure was 129/78, temperature was 97.6, respiratory rate was 20, and oxygen saturation was 93% on room air. HEAD, EYES, EARS, NOSE AND THROAT: Showed normocephalic, atraumatic. NECK: Supple. HEART: Showed normal first and second heart sounds with no gallop, rub or murmur. CHEST: Clear to auscultation. No crepitation or rhonchi. She has some few scattered rhonchi. ABDOMEN: Distended, soft, nontender. NEUROLOGIC: She is awake, alert, responding appropriately. All cranial nerves intact. She moves extremities without difficulty. She ambulates with a walker; however, she continued to have unsteady gait. Her intake was 1990, no output was recorded. LABORATORY DATA: Her lab work this morning showed a white cell count 4300, hemoglobin 12.6, hematocrit 38, MCV 94 and platelet count of 276,000. Her serum sodium was 147, potassium 3.7, chloride 108, bicarbonate 33, anion gap of 6, BUN 5, creatinine 0.7. Estimated GFR was 83 mL per minute. Her glucose 114, calcium was 8.2. Total bilirubin, AST, ALT, alkaline phosphatase were normal. Total protein was 6.1, albumin was 3.1. Her prothrombin time, INR and aPTT were normal. ASSESSMENT: 1. Impaired balance with abnormal tandem gait. 2. Urinary tract infection. 3. She has multiple other medical problems including: A. Slow progressive memory loss. B. Chronic low back pain, likely due to radiculopathy versus peripheral neuropathy. C. Hypertension. D. Hyperlipidemia. E. Chronic obstructive pulmonary disease. F. Depression. PLAN: To continue with IV antibiotic. Continue with the bronchodilators. I will discontinue her IV fluid. Hopefully discharge her home tomorrow. CHRISTINA ALAS MD DR: STACY/manjinder JOB#: [id number] / [id number]
--- NOTE | 2019-03-23 12:27 | PN ---
DATE: SUBJECTIVE: The patient continues to have impaired balance and tendency to veer to one side when she walks. She denies headaches, visual disturbances, nausea, vomiting, chest pain or palpitations. OBJECTIVE: GENERAL: Well-developed, well-nourished female, not in acute distress. VITAL SIGNS: Blood pressure 136/78, respiratory rate 20, pulse is 88 and regular, temperature 98, oxygen saturation 93% on room air. HEENT: Normocephalic, atraumatic, otherwise unremarkable. NECK: Supple. Negative for carotid bruit, lymphadenopathy or thyromegaly. LUNGS: Clear to A and P. CARDIOVASCULAR: Regular rate and rhythm, normal S1, S2. ABDOMEN: Soft. Bowel sounds positive. EXTREMITIES: Negative for cyanosis, clubbing or edema. NEUROLOGICAL EXAM: Mental Status: The patient is alert and oriented x 3. Speech is fluent. There is no language dysfunction. The patient recalls 2/3 immediately and 1/3 after 1 and 3 minutes. Judgment and abstract thinking are fair. The patient denies hallucination or delusion. Cranial nerves are intact. No focal motor or sensory deficit. The strength was 5/5 throughout. Sensory examination revealed diminished pinprick and light touch senses in patchy distributions in distal lower extremities. Deep tendon reflexes were symmetric and hypoactive with absent Achilles responses. Gait: The stance is steady, but the tandem gait is normal. Romberg sign is positive. LABORATORY DATA: CBC revealed white blood cells of 4300, hemoglobin 12.6, hematocrit 38.3, platelet count 176,000. Chemistry revealed sodium of 147, potassium 3.7, chloride 108, CO2 of 33, BUN 5, creatinine 0.7, glucose 114, calcium 8.2. IMPRESSION: 1. Impaired balance with abnormal tandem gait. 2. Urinary tract infections. 3. Multiple medical problems include hypertension, hyperlipidemia, chronic obstructive pulmonary disease, depressions, chronic low back pain, rule out lumbosacral radiculopathy versus peripheral neuropathy. RECOMMENDATIONS: 1. Continue with current management initiated with Dr. Allen for urinary tract infections. 2. Physical therapy as tolerated. 3. To arrange for EEG, EMG/NCS of the lower extremities on an outpatient basis after she completes physical therapy. M Fer HOUSTON MD DR: BALJIT/manjinder JOB#: [id number] / [id number]
[2019-03-23 14:22] VITALS: BP 152/51
[2019-03-23 18:39] VITALS: BP 161/80
[2019-03-23] MEDS: MELOXICAM 15 MG TABLET. PO SCH (20:22)
[2019-03-23] MEDS: CARISOPRODOL 350 MG TABLET PO SCH (20:22)
[2019-03-23] MEDS: AMITRIPTYLINE HCL 50 MG TABLET PO SCH (20:23)
--- NOTE | 2019-03-23 21:10 | NUR ---
Patient doing well this evening. Speech came and saw patient and recommended she continue with regular diet and thin liquids. She needs to sit straight up while eating and stay up for 90 minutes after eating and drinking. Went over plan of care with patient and she voiced understanding. Patient and this nurse had a talk about patient possibly going and getting rehab for strength and she said she would be interested as she feels like she is getting more weak. Patient call light within reach. Will continue to monitor for any changes.
[2019-03-24] MEDS: IPRATRPIUM/ALBUTEROL 0.5/2.5MG 3 ML NEBU. NEB SCH ×2 (05:10→15:28)
[2019-03-24 05:24] VITALS: BP 147/74
[2019-03-24 06:49] LABS: CALCIUM 8.7 mg/dL (8.5-10.1); CREATININE 0.7 mg/dL (0.6-1.0); GFR 83.2; POTASSIUM 4.1 mmol/L (3.5-5.1)
[2019-03-24] MEDS: LACTOBACILLUS RHAMNOSUS GG 1 CAPSULE. PO SCH (08:03)
[2019-03-24] MEDS: GABAPENTIN 300 MG CAPSULE. PO SCH ×2 (08:03→14:19)
[2019-03-24] MEDS: MONTELUKAST 10 MG TABLET. PO SCH (08:04)
[2019-03-24] MEDS: HYDROXYCHLOROQUINE 200 MG TABLET PO SCH (08:04)
[2019-03-24] MEDS: buPROPion SR 150 MG TABLET.SA PO SCH (08:04)
[2019-03-24] MEDS: PANTOPRAZOLE 40 MG TABLET. PO SCH (08:04)
[2019-03-24 10:15] VITALS: BP 153/78
[2019-03-24] MEDS ORDERED: CEFD300C PO (10:31)
--- NOTE | 2019-03-24 10:33 | DISCH ---
DISCHARGE ORDERS DISCHARGE DATE: Mar 24, 2019 FINAL DIAGNOSIS unstady gait urinary tract infection CONDITION AT DISCHARGE: Stable Code Status: Full SNF STAY <30 DAYS: Yes POST DISCHARGE ORDERS: ACTIVITY ORDERS: Activity as tolerated DIET AFTER DISCHARGE: Regular TREATMENT/EQUIPMENT ORDERS: ADAPTIVE EQUIPMENT NEEDED: Walker DISCHARGE MEDICATIONS: Home Meds Active Scripts Cefdinir (CEFDINIR) 300 Mg Capsule, 1 CAP PO BID for uti for 4 Days, #8 CAP Prov:CHRISTINA ALAS MD 03/24/19 Reported Medications Carisoprodol (SOMA) 250 Mg Tablet, 350 MG PO HS for insomnia, TAB 03/21/19 Hydroxychloroquine Sulfate (HYDROXYCHLOROQUINE SULFATE) 200 Mg Tablet, 1 TAB PO DAILY for . 03/21/19 Meloxicam (MELOXICAM) 15 Mg Tablet, 1 TAB PO HS for . 03/21/19 Bupropion Hcl (WELLBUTRIN SR) 150 Mg Tablet.er, 1 TAB PO BID for DEPRESSION 11/12/18 Gabapentin (GABAPENTIN) 600 Mg Tablet, 600 MG PO TID for neuropathy LAST DOSE GIVEN: DATE: TIME: NEXT DOSE DUE: DATE: TIME: 04/27/17 Amitriptyline Hcl (AMITRIPTYLINE HCL) 25 Mg Tablet, 100 MG PO HS for depression, TAB LAST DOSE GIVEN: DATE: TIME: NEXT DOSE DUE: DATE: TIME: 04/25/17 Albuterol Sulfate (ALBUTEROL SULFATE NEB SOLN ) 2.5 Mg/3 Ml Vial.neb, 2.5 MG NEB PRN Q4-6HRS, EACH 0 Refills LAST DOSE GIVEN: DATE: TIME: NEXT DOSE DUE: DATE: TIME: 04/25/17 Pantoprazole Sodium (PROTONIX) 40 Mg Tablet.dr, 40 MG PO DAILY for GERD, TAB LAST DOSE GIVEN: DATE: TIME: NEXT DOSE DUE: DATE: TIME: 04/25/17 Montelukast Sodium (MONTELUKAST SODIUM TABLET ) 10 Mg Tablet, 10 MG PO DAILY for FOR ASTHMA, #30 TAB 0 Refills LAST DOSE GIVEN: DATE: TIME: NEXT DOSE DUE: DATE: TIME: 04/25/17 Discontinued Reported Medications Calcium Carbonate (CALCIUM) 500 Mg Tablet, 500 MG PO, TAB LAST DOSE GIVEN: DATE: TIME: NEXT DOSE DUE: DATE: TIME: 04/25/17 [place]-3 Fatty Acids/Fish Oil (FISH OIL 1,000 MG CAPSULE) 1 Each Capsule, 1 EACH PO TID, CAP LAST DOSE GIVEN: DATE: TIME: NEXT DOSE DUE: DATE: TIME: 04/25/17 Tiotropium [place] (SPIRIVA) 18 Mcg Cap.w.dev, 18 MCG IH DAILY LAST DOSE GIVEN: DATE: TIME: NEXT DOSE DUE: DATE: TIME: 04/25/17 Fluticasone/Salmeterol (ADVAIR 500-50 DISKUS) 1 Each Disk.w.dev, 1 PUFF IH BID, #1 INHALER 3 Refills LAST DOSE GIVEN: DATE: TIME: NEXT DOSE DUE: DATE: TIME: 04/25/17 CHRISTINA ALAS MD Mar 24, 2019 10:33
--- NOTE | 2019-03-24 11:22 | RAD ---
Chest radiograph 03/24/2019 10:54 AM INDICATION: Worsening cough and shortness of breath COMPARISON: 03/21/2019 TECHNIQUE: Frontal and lateral views of the chest are provided. FINDINGS: The cardiomediastinal silhouette is within normal limits. There are no pleural effusions. There is no pulmonary vascular congestion. There is no pneumothorax. Patchy interstitial airspace disease noted at the left lung base. Pulmonary emphysematous changes are present. No significant osseous abnormality is identified. Cholecystectomy changes are present. IMPRESSION: COPD changes with patchy interstitial airspace disease at the left lung base. Consideration may be given for atelectasis versus pneumonia in appropriate clinical setting. Electronically signed by: Jackie Morris MD (03/24/2019 11:18 AM) [id number]
[2019-03-24 14:20] VITALS: BP 121/62
--- NOTE | 2019-03-24 17:32 | NUR ---
Discharge Notes Discharge report given to nurse at [facility] via phone, discharge packet given to transportation. Discharge and teaching information reviewed with patient, patient verbal understanding. Had supper and was taken out of facility in a wheelchair by transportation send by [facility].
--- NOTE | 2019-03-25 08:53 | PN ---
DATE: 03/24/2019 SUBJECTIVE: The patient denies any new neurological complaints. She complains of dry cough. She denies chest pain, shortness of breath or palpitation. The patient stated her balance has improved in the last 2 days. She is able to walk without assistance. OBJECTIVE: GENERAL: Well-developed, well-nourished female, not in acute distress. VITAL SIGNS: Blood pressure 121/62, respiratory rate 20, pulse is 86, oxygen saturation is 94% on 2 liters by nasal cannula and temperature 98.2. HEENT: Normocephalic, atraumatic, otherwise unremarkable. NECK: Supple. Negative for carotid bruit, lymphadenopathy or thyromegaly. LUNGS: Diminished breath sounds. No wheezing or rales. CARDIOVASCULAR: Regular rhythm, normal S1, S2. ABDOMEN: Soft. Bowel sounds positive. EXTREMITIES: Negative for cyanosis, clubbing, or edema. NEUROLOGICAL EXAMINATION: Mental status: The patient is alert and oriented x 3. Speech is fluent. There is no language dysfunction. She recalls 2/3 immediately and after 1 and 3 minutes. Cranial nerves are intact. Motor examination: No focal muscle bulk was seen. The strength was 4/5 throughout. Sensory examination revealed diminished pinprick and light touch senses in patchy distributions in distal lower extremities. Deep tendon reflexes were asymmetric and hypoactive with absent Achilles responses. Gait: The patient walks without assistance; however, tandem gait is abnormal. IMPRESSION: 1. Impaired balance with abnormal tandem gait. 2. Urinary tract infections. 3. Multiple medical problems include chronic lower back pain, hypertension, hyperlipidemia, chronic obstructive pulmonary disease, depressions. RECOMMENDATIONS: 1. Continue with current management, initiated by Dr. Allen. 2. We will arrange for EEG/EMG/NCS of the lower extremities, rule out peripheral neuropathy versus lumbosacral radiculopathy. 3. Physical therapy as tolerated. M Fer HOUSTON MD DR: BALJIT/manjinder JOB#: [id number] / [id number]
--- NOTE | 2019-03-25 09:00 | PN ---
DATE: 03/24/2019 SUBJECTIVE: The patient denies any new neurological complaints. She complains of dry cough. She denies chest pain, shortness of breath or palpitation. The patient stated her balance has improved in the last 2 days. She is able to walk without assistance. OBJECTIVE: GENERAL: Well-developed, well-nourished female, not in acute distress. VITAL SIGNS: Blood pressure 121/62, respiratory rate 20, pulse is 86, oxygen saturation is 94% on 2 liters by nasal cannula and temperature 98.2. HEENT: Normocephalic, atraumatic, otherwise unremarkable. NECK: Supple. Negative for carotid bruit, lymphadenopathy or thyromegaly. LUNGS: Diminished breath sounds. No wheezing or rales. CARDIOVASCULAR: Regular rhythm, normal S1, S2. ABDOMEN: Soft. Bowel sounds positive. EXTREMITIES: Negative for cyanosis, clubbing or edema. NEUROLOGICAL EXAM: Mental Status: The patient is alert and oriented x 3. Speech is fluent. There is no language dysfunction. She recalls 2/3 immediately and after 1 and 3 minutes. Cranial nerves are intact. Motor examination: No focal muscle bulk was seen. The strength was 4/5 throughout. Sensory examination revealed diminished pinprick and light touch senses in patchy distributions in distal lower extremities. Deep tendon reflexes were asymmetric and hypoactive with absent Achilles responses. Gait: The patient walks without assistance; however tandem gait is abnormal. IMPRESSION: 1. Impaired balance with abnormal tandem gait. 2. Urinary tract infections. 3. Multiple medical problems include chronic low back pain, hypertension, hyperlipidemia, chronic obstructive pulmonary disease, depressions, and chronic low back pain. RECOMMENDATIONS: 1. Continue with current management initiated by Dr. Allen. 2. We will arrange for EEG/EMG/NCS of the lower extremities, rule out peripheral neuropathy versus lumbosacral radiculopathy. 3. Physical therapy as tolerated. M Fer HOUSTON MD DR: BALJIT/manjinder JOB#: [id number] / [id number]
--- NOTE | 2019-05-08 14:35 | DS ---
DATE OF DISCHARGE: 03/24/2019 HOSPITAL COURSE: The patient is a 68-year-old female patient who was admitted to [facility] with increasing confusion and ____ she describes being unstable when walking, has to correct herself regularly, so she does not fall. Sometimes she has held on objects or be with the support for support as well sometimes has difficulty finding words. Per patient's family, she has been acting differently for the past month, has been progressively worsening. She is regularly on oxygen at home. She has also complained of associated knee pain. She was extensively investigated in the Emergency Room. Her lab works showed a white cell count that was normal. She has mildly elevated serum creatinine. Her urinalysis showed the urine was positive for nitrite, large amount of leukocyte esterase, too numerous to count wbc's and many bacteria. The patient was admitted with weakness, dysarthria, expressive aphasia, urinary tract infection and acute renal failure. She was treated with IV fluid and IV antibiotic and did very well. Her white cell count was normal since admission and her kidney function has improved and it was felt that the patient would benefit from further rehabilitation and therefore, she was discharged to [facility]. PHYSICAL EXAMINATION: GENERAL: On the day of discharge, the patient looked well and was clearly in no apparent respiratory distress. No pallor, jaundice, cyanosis or thyromegaly. No jugular venous distention. No limb edema. VITAL SIGNS: Her heart rate was 86, blood pressure was 121/62, temperature 98.2, respiratory rate 20, and oxygen saturation was 94% on 2 liters of oxygen. The rest of clinical exam is stable. LABORATORY DATA: Her lab work showed a white cell count 4300, hemoglobin 12, hematocrit 38, MCV 94 and platelet count of 176,000. Her BUN is 6, creatinine 0.7 with normal electrolytes and liver enzymes. Her prothrombin time, INR and aPTT normal. Urinalysis showed large amount of leukocyte esterase, too numerous to count wbc's. Her final urine culture has grown more than 100,000 colony forming units of gram-positive rods identified as Enterobacter cloacae. DISCHARGE MEDICATIONS: The patient was discharged to [place] to continue on cefdinir 300 mg twice a day for 4 more days, albuterol sulfate 2.5 mg by nebulizer every 4-6 hours, amitriptyline 100 mg at bedtime, Wellbutrin 150 mg twice a day, Soma 350 mg at bedtime, gabapentin 600 mg 3 times a day, hydroxychloroquine sulfate 200 mg once a day, meloxicam 15 mg at bedtime, montelukast sodium 10 mg at bedtime and Protonix 40 mg daily. FINAL DISCHARGE DIAGNOSES: 1. Impaired balance with abnormal tandem gait. 2. Urinary tract infection. 3. Multiple other medical problems including: A Hypertension. B. Hyperlipidemia. C. Chronic obstructive pulmonary disease. D. Depression. E. Chronic low back pain. CHRISTINA ALAS MD DR: STACY/manjinder JOB#: [id number] / [id number]
== END 2019-03-24 17:38 | DRG 682 ==
LOC: ER 12:20 → 1 SOUTH 14:25
PROVIDERS: ADMIT Internal Medicine; ATTEND Internal Medicine
DX: N17.0 Acute kidney failure with tubular necrosis (principal); J96.01 Acute respiratory failure with hypoxia; N39.0 Urinary tract infection, site not specified; R47.01 Aphasia; E78.00 Pure hypercholesterolemia, unspecified; E78.5 Hyperlipidemia, unspecified; E86.0 Dehydration; F32.9 Major depressive disorder, single episode, unspecified; G89.29 Other chronic pain; I10 Essential (primary) hypertension; F41.9 Anxiety disorder, unspecified; K21.9 Gastro-esophageal reflux disease without esophagitis; M54.5 Low back pain; J44.9 Chronic obstructive pulmonary disease, unspecified; M15.9 Polyosteoarthritis, unspecified; Z82.49 Family history of ischemic heart disease and other diseases of the circulatory system; Z83.3 Family history of diabetes mellitus; Z87.442 Personal history of urinary calculi; Z87.891 Personal history of nicotine dependence; Z90.710 Acquired absence of both cervix and uterus; Z99.81 Dependence on supplemental oxygen
CPT/HCPCS: 36415; 70450; 71045; 71046; 80048; 80053; 80307; 81001; 82140; 82553; 82947; 83605; 83735; 83880; 84484; 85025; 85027; 85610; 85730; 87086; 87186; 90471; 90686; 93005; 94640; 94760; 96361; 96365; J0696; J7042; J7620; P9612; 92610; 97110; 99291-25; J7030

== ENCOUNTER 2019-06-30 15:42 | Emergency (ER) | payer MEDICARE, OTHER ==
[~2019-06-30] VITALS: Ht 162.6 cm; Wt 83.7 kg
[~2019-06-30 15:42] MED LIST changes: +CARI250T PO; +CEFD300C PO
[2019-06-30 15:55] VITALS: BP 147/92
[2019-06-30] MEDS ORDERED: IV NORMAL SALINE 500ML 500 ML IV ONE (16:15)
[2019-06-30] MEDS ORDERED: IPRATRPIUM/ALBUTEROL 0.5/2.5MG 3 ML NEBU. NEB ONE (16:15)
--- NOTE | 2019-06-30 16:16 | PHYS DOC ---
Past History Past Medical History: Anxiety, Arthritis, COPD, Fibromyalgia, GERD, High Cholesterol Past Surgical History: Cholecystectomy, Hysterectomy, Tonsillectomy Smoking: Non-smoker Alcohol Use: None Drug Use: None Adult General Chief Complaint Chief Complaint: SHORTNESS OF BREATH [facility] HPI Patient is a 68-year-old female who presents with complaint of cough and shortness of breath that started last night. Patient indicates that she feels like she needs to get some sputum up but hasn't been able to. She states that earlier this afternoon she had a coughing spell and became very short of breath and since that time has had pain in her right chest wall, especially with coughing. She describes pain as a burning type of pain. She denies any nausea, vomiting or diaphoresis. She also denies any fever. Patient states the shortness of breath is worsened with exertion.[] Review of Systems Review of Systems Constitutional: Denies fever or chills [] Respiratory: Complains of cough and shortness of breath [] Cardiovascular: No additional information not addressed in HPI [] GI: Denies abdominal pain, nausea, vomiting or diarrhea [] Integument: Denies rash or skin lesions [] Neurologic: Denies headache, focal weakness or sensory changes [] All other systems were reviewed and found to be within normal limits, except as documented in this note. Allergies Allergies Allergies Coded Allergies Type Severity Reaction Last Updated Verified No Known Drug Allergies 03/21/19 No Physical Exam Physical Exam Constitutional: Well developed, well nourished, no acute distress, non-toxic appearance. [] HENT: Normocephalic, atraumatic, bilateral external ears normal, oropharynx moist, no oral exudates, nose normal. [] Eyes: PERRLA, EOMI, conjunctiva normal, no discharge. [] Neck: Normal range of motion, no tenderness, supple, no stridor. [] Cardiovascular: Regular rate and rhythm[] Lungs & Thorax: Fine rhonchi are noted in the right lung base to auscultation [] Abdomen: Bowel sounds normal, soft, no tenderness. [] Skin: Warm, dry, no erythema, no rash. [] Extremities: No tenderness, no cyanosis, no clubbing, ROM intact. [] Neurologic: Alert and oriented X 3, no focal deficits noted. [] EKG EKG EKG demonstrates normal sinus rhythm with rate of 95.[] Radiology/Procedures Radiology/Procedures [] Impressions: PROCEDURE: PORTABLE CHEST 1V Single AP view of the chest. Comparison: 03/24/2019. Indication: Cough Findings: The heart is not enlarged. There is no pneumothorax or effusion. No air space or interstitial disease. Impression: 1. No acute cardiopulmonary process. Electronically signed by: Thomas Cavanaugh MD (06/30/2019 4:42 PM) [id number] Course & Med Decision Making Course & Med Decision Making Pertinent Labs and Imaging studies reviewed. (See chart for details) [] Dragon Disclaimer Dragon Disclaimer This electronic medical record was generated, in whole or in part, using a voice recognition dictation system. Departure Departure: Impression: Primary Impression: Acute bronchitis Disposition: 01 HOME, SELF-CARE Condition: STABLE Referrals: KEISHA PRICE DO (PCP) Patient Instructions: Acute Bronchitis Scripts Methylprednisolone (MEDROL) 4 Mg Tab.ds.pk 1 PKG PO UD for inflammation, #1 PKG Prov: SUNDAY WINN Jr. DO 06/30/19 Guaifenesin/Codeine Phosphate (Codeine-Guaifen 10-100 mg/5 ml) 120 Ml Liquid 5 ML PO PRN Q6HRS PRN for cough and congestion MDD 20 Milliliter(s) for 6 Days, #120 ML 0 Refills Prov: SUNDAY WINN Jr. DO 06/30/19 Amoxicillin/Potassium Clav (AUGMENTIN 875-125 TABLET) 1 Each Tablet 1 TAB PO BID for infection for 10 Days, #20 TAB 0 Refills Prov: SUNDAY WINN Jr. DO 06/30/19 Problem Qualifiers Primary Impression: Acute bronchitis Bronchitis organism: unspecified organism Qualified Codes: J20.9 - Acute bronchitis, unspecified SUNDAY WINN Jr. DO Jun 30, 2019 16:16
[2019-06-30 16:24] LABS: BASO # 0.1 x10^3/uL (0.0-0.2); BASO % 1 % (0-3); EOS # 0.5 x10^3/uL (0.0-0.7); EOS % 6 % (0-3); HEMATOCRIT 43.5 % (36.0-47.0); HEMOGLOBIN 14.5 g/dL (12.0-15.5); LYMPH # 1.3 x10^3/uL (1.0-4.8); LYMPH % 15 % (24-48); MEAN CORPUSCULAR HEMOGLOBIN 31 pg (25-35); MEAN CORPUSCULAR HGB CONC 33 g/dL (31-37); MEAN CORPUSCULAR VOLUME 93 fL (79-100); MONO # 0.4 x10^3/uL (0.0-1.1); MONO % 5 % (0-9); NEUT # 6.1 x10^3uL (1.8-7.7); NEUT % 73 % (31-73); PLATELET COUNT 238 x10^3/uL (140-400); RED BLOOD COUNT 4.67 x10^6/uL (3.50-5.40); WHITE BLOOD COUNT 8.5 x10^3/uL (4.0-11.0)
--- NOTE | 2019-06-30 16:45 | RAD ---
Single AP view of the chest. Comparison: 03/24/2019. Indication: Cough Findings: The heart is not enlarged. There is no pneumothorax or effusion. No air space or interstitial disease. Impression: 1. No acute cardiopulmonary process. Electronically signed by: Thomas Cavanaugh MD (06/30/2019 4:42 PM) [id number]
[2019-06-30 16:56] LABS: INFLUENZA A PATIENT NEGATIVE (NEGATIVE); INFLUENZA B PATIENT NEGATIVE (NEGATIVE)
--- NOTE | 2019-06-30 17:55 | EKG ---
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
[2019-06-30 17:58] LABS: CALCIUM 8.8 mg/dL (8.5-10.1); CREATININE 0.8 mg/dL (0.6-1.0); GFR 71.3; POTASSIUM 3.8 mmol/L (3.5-5.1)
[2019-06-30 18:11] LABS: ALBUMIN 3.8 g/dL (3.4-5.0); ALBUMIN/GLOBULIN RATIO 1.2 (1.0-1.7); TOTAL BILIRUBIN 0.3 mg/dL (0.2-1.0); TOTAL PROTEIN 6.9 g/dL (6.4-8.2)
[2019-06-30] MEDS ORDERED: AMOX1TAB61 PO (18:19)
[2019-06-30] MEDS ORDERED: METH4TAB2 PO (18:19)
[2019-06-30] MEDS ORDERED: GUAI120L35 PO (18:19)
== END 2019-06-30 18:26 | disposition home or self-care (01) ==
LOC: ER 15:42
DX: J20.9 Acute bronchitis, unspecified (principal); M19.90 Unspecified osteoarthritis, unspecified site; J44.9 Chronic obstructive pulmonary disease, unspecified; M79.7 Fibromyalgia; K21.9 Gastro-esophageal reflux disease without esophagitis; E78.00 Pure hypercholesterolemia, unspecified
CPT/HCPCS: 36415; 71045; 80053; 83880; 84484; 85025; 85379; 87040; 87804; 93005; 94640; 99285; J7040; J7620

== ENCOUNTER 2019-10-31 11:34 | Emergency (ER) | payer MEDICARE, OTHER ==
[~2019-10-31] VITALS: Ht 162.6 cm; Wt 85.4 kg
[~2019-10-31 11:34] MED LIST changes: +AMOX1TAB61 PO; +GUAI120L35 PO; +METH4TAB2 PO
--- NOTE | 2019-10-31 12:53 | RAD ---
EXAM: HIP RIGHT 2V WITH PELVIS 10/31/2019 12:21 PM CLINICAL INDICATION:Fall COMPARISON:None TECHNIQUE:AP view of the pelvis and AP and frog-leg lateral view of the right hip FINDINGS:No acute fracture. Alignment is normal. The hip joint spaces are maintained. No pubic symphysis or sacroiliac joint widening. The sacrum is partially obscured by overlying bowel. IMPRESSION:No acute osseous abnormality. Electronically signed by: Marybel Conway MD (10/31/2019 12:50 PM) [id number]
--- NOTE | 2019-10-31 13:11 | RAD ---
CT HEAD AND MAXILLOFACIAL WO History: Reason: fall, injury / Spl. Instructions: / History: . Pain. Comparison: March 21 2019 Technique: Noncontrast CT imaging was performed of the head and maxillofacial. Coronal and sagittal reconstructions were performed. Exposure: One or more of the following individualized dose reduction techniques were utilized for this examination: 1. Automated exposure control 2. Adjustment of the mA and/or kV according to patient size 3. Use of iterative reconstruction technique. Findings: Head CT: No intracranial hemorrhage. No mass effect. No hydrocephalus. Foci of decreased attenuation within the hemispheric white matter, most often due to sequelae of chronic microvascular ischemia, unchanged. Maxillofacial CT: Chronic left nasal bone fracture. No acute maxillofacial fracture. Orbits are unremarkable. Paranasal sinuses and mastoid air cells are clear. No acute calvarial fracture. Multilevel cervical spondylosis. Grade 1 anterolisthesis C3 on C4. Impression: Head CT: 1. No acute intracranial abnormality. Maxillofacial CT: 1. No acute maxillofacial fracture. 2. Chronic left nasal bone fracture. Electronically signed by: Austin Maher DO (10/31/2019 1:08 PM) [id number]
--- NOTE | 2019-10-31 13:21 | PHYS DOC ---
Past History Past Medical History: Anxiety, Arthritis, Asthma, COPD, Fibromyalgia, GERD, High Cholesterol Past Surgical History: Cholecystectomy, Hysterectomy, Tonsillectomy Smoking: Non-smoker Alcohol Use: Rarely Drug Use: None General Adult EDM: Chief Complaint: MECHANICAL FALL HPI: HPI: Patient is a 69-year-old female presenting to the ED with a chief complaint of a mechanical fall. Patient states that she got up too quick from the couch fell face forward. Patient states that usually she has to sit up and give her knees some time and then stand up. Patient complains of pain to her upper lip. She also complains of pain to her right head and right hip. Patient denies being on blood thinners. Patient denies loss of consciousness. Patient states that her lives at home and came into check on her. Review of Systems: Review of Systems: Constitutional: Denies fever or chills Eyes: Denies change in visual acuity HENT: Complains of pain to her right upper lip and mouth Respiratory: Denies cough or shortness of breath Cardiovascular: Denies chest pain or edema GI: Denies abdominal pain, nausea, vomiting, bloody stools or diarrhea : Denies dysuria Musculoskeletal: Complains of right hip tenderness Neurologic: Denies headache, focal weakness or sensory changes Heart Score: Risk Factors: Risk Factors: DM, Current or recent (<one month) smoker, HTN, HLP, family history of CAD, obesity. Risk Scores: Score 0 - 3: 2.5% MACE over next 6 weeks - Discharge Home Score 4 - 6: 20.3% MACE over next 6 weeks - Admit for Clinical Observation Score 7 - 10: 72.7% MACE over next 6 weeks - Early Invasive Strategies Allergies: Allergies: Allergies Coded Allergies Type Severity Reaction Last Updated Verified No Known Drug Allergies 03/21/19 No Physical Exam: PE: Constitutional: Well developed, well nourished, no acute distress, non-toxic appearance. [] HENT: Swelling to the right upper lip. No laceration present. 1 front tooth is loose. No dental fractures. Eyes: EOMI Neck: Normal range of motion, Supple Cardiovascular:Heart rate regular rhythm Lungs & Thorax: Bilateral breath sounds clear to auscultation [] Abdomen: Bowel sounds normal, soft, no tenderness Extremities: Tenderness to the right hip. Neurovascular intact with normal range of motion Neurologic: Alert and oriented X 3 Current Patient Data: Vital Signs: Vital Signs Date Time Temp Pulse Resp B/P (MAP) Pulse Ox O2 Delivery O2 Flow Rate FiO2 10/31/19 12:10 98.0 93 20 124/74 (91) 95 Room Air EKG: EKG: [] Radiology/Procedures: Radiology/Procedures: [] Impressions: Impression: Head CT: 1. No acute intracranial abnormality. Maxillofacial CT: 1. No acute maxillofacial fracture. 2. Chronic left nasal bone fracture. Course & Med Decision Making: Course & Med Decision Making Pertinent Imaging studies reviewed. (See chart for details) Ordered CT head, CT max of facial bones, x-ray of the right hip and pelvis Imaging shows no acute fractures. CT of the maxillary bones shows that patient has a chronic left nasal fracture. Patient can be discharged home for outpatient follow-up. Patient states that she will follow-up with dentist for tooth injury. Discussed results and plan of care with patient. Patient is instructed to follow up with PCP in one to 2 days. Appropriate discharge instructions given to patient to return to the ED or to seek immediate medical evaluation. Patient is instructed to return to the ED if symptoms worsen or if any concerns. Dragon Disclaimer: Dragon Disclaimer: This electronic medical record was generated, in whole or in part, using a voice recognition dictation system. Departure Departure: Impression: Primary Impression: Facial contusion Additional Impressions: Head injury Contusion of hip, right Disposition: 01 HOME/RESIDENCE PRIOR TO ADM Condition: STABLE Referrals: KEISHA PRICE DO (PCP) Patient Instructions: Facial or Scalp Contusion, Head Injury, Adult, Hip Injury Additional Instructions: Discussed results and plan of care with patient. Patient is instructed to follow up with PCP in one to 2 days. Appropriate discharge instructions given to patient to return to the ED or to seek immediate medical evaluation. Patient is instructed to return to the ED if symptoms worsen or if any concerns. Scripts Ondansetron Hcl (ZOFRAN) 4 Mg Tablet 1 TAB PO Q6HRS for nausea, #15 TAB Prov: JOSE E RIDDLE DO 10/31/19 Hydrocodone Bit/Acetaminophen (NORCO 5-325 TABLET) 1 Each Tablet 1 TAB PO Q4-6HRS for PAIN, #15 TAB Prov: JOSE E RIDDLE DO 10/31/19 Justification of Admission: Justification of Admission: Justification of Admission Dx: JOSE E Alcala DO Oct 31, 2019 13:21
[2019-10-31] MEDS ORDERED: HYDR-3165 PO (13:27)
[2019-10-31] MEDS ORDERED: ONDA4TAB7 PO (13:27)
[2019-10-31 13:40] VITALS: BP 117/81
== END 2019-10-31 13:45 | disposition home or self-care (01) ==
LOC: ER 11:34
DX: S00.531A Contusion of lip, initial encounter (principal); S70.01XA Contusion of right hip, initial encounter; R60.0 Localized edema; F41.9 Anxiety disorder, unspecified; M19.90 Unspecified osteoarthritis, unspecified site; J44.9 Chronic obstructive pulmonary disease, unspecified; M79.7 Fibromyalgia; K21.9 Gastro-esophageal reflux disease without esophagitis; E78.00 Pure hypercholesterolemia, unspecified; Z90.710 Acquired absence of both cervix and uterus; Z90.49 Acquired absence of other specified parts of digestive tract; Z90.89 Acquired absence of other organs; W08.XXXA Fall from other furniture, initial encounter; Y93.89 Activity, other specified; Y92.89 Other specified places as the place of occurrence of the external cause; Y99.8 Other external cause status
CPT/HCPCS: 70450; 70486; 73502; 99285

== ENCOUNTER → 2020-07-20 | Outpatient (CLI) | payer MEDICARE, OTHER ==
[~2020-07-20] MED LIST changes: +HYDR-3165 PO; +ONDA4TAB7 PO
--- NOTE | 2020-07-20 14:58 | RAD ---
CT of the chest 07/20/2020 INDICATION: COPD. COMPARISON STUDY: Chest radiograph June 30, 2019. CT of the chest with contrast November 12, 2018 TECHNIQUE: Multidetector CT imaging of the chest was performed without the administration of IV contr ast. FINDINGS: Heart size is normal. Trace pericardial fluid noted. Coronary calcification noted. No pathologically enlarged mediastinal adenopathy is seen. Scattered small mediastinal lymph nodes noted. Severe emphy sematous changes are seen throughout the lungs. There is a linear opacity in the basilar left lower l obe suggestive of scarring or discoid atelectasis. There is a small groundglass opacity in the lingula measuring 8 mm in diameter (axial image 178). Atelectasis may have obscured this finding on prior exam. There are 2 adjacent subpleural nodules in the right middle lobe measuring 5 mm each (sagittal image 254 and to 251). The appearance is grossly stable. There is subpleural nodule in the right lower lobe measuring 6 mm in diameter. The appearance is rebecca sly stable. No pneumothorax, pleural effusion, or acute focal infiltrate is identified. Limited visualization of the upper abdomen demonstrates no acute changes. No acute osseous abnormalities are identified. IMPRESSION: 1.Subcentimeter groundglass and solid nodules as described. Recommend continued CT surveillance. 2. Severe emphysema CT DOSING PQRS STATEMENT: One or more of the following individualized dose reduction techniques were utilized for this examinat ion: 1. Automated exposure control 2. Adjustment of the mA and/or kV according to patient size 3. Use of iterative reconstruction technique Electronically signed by: Gregorio Kelsey MD (07/20/2020 2:56 PM) [facility]
== END ==
LOC: CT 11:06
PROVIDERS: ATTEND Internal Medicine Pulmonary Disease
DX: J43.9 Emphysema, unspecified (principal)
CPT/HCPCS: 71250

== ENCOUNTER → 2020-08-06 | Outpatient (CLI) | payer MEDICARE, OTHER ==
--- NOTE | 2020-08-06 15:36 | RAD ---
EXAM: CAROTID DOPPLER SONOGRAM. HISTORY: Dizziness, near syncope. TECHNIQUE: Saucedo scale and color Doppler sonographic evaluation of the neck with spectral waveform byron lysis was performed and static images are submitted for review. FINDINGS: RIGHT: The peak systolic velocity within the common carotid artery is 61 cm/sec. The peak systolic ve locity within the internal carotid artery is 54 cm/sec and the end diastolic velocity within the inte rnal carotid artery is 20 cm/sec. The ICA/CCA ratio is 1.0. Grayscale images demonstrate no grayscale stenosis. LEFT: The peak systolic velocity within the common carotid artery is 60 cm/sec. The peak systolic randall ocity within the internal carotid artery is 59 cm/sec and the end diastolic velocity within the inter nal carotid artery is 21 cm/sec. The ICA/CCA ratio is 1.0. Grayscale images demonstrate no grayscale stenosis. There is antegrade flow within both vertebral arteries. IMPRESSION: 1. No evidence of hemodynamically significant stenosis. PQRS Compliance Statement - Stenosis calculations for CT, MR and conventional angiography are based u alanis measurement of the distal ICA diameter in accordance with the NASCET methodology. Stenosis calcu lations for carotid ultrasound studies are derived from validated velocity criteria which are known t o correlate with the NASCET methodology. Electronically signed by: Papi Cowan MD (08/06/2020 3:33 PM) [facility]
== END ==
LOC: US 09:47
PROVIDERS: ATTEND Family Medicine Sports Medicine
DX: R42 Dizziness and giddiness (principal)
CPT/HCPCS: 93880

== ENCOUNTER → 2021-04-05 | Outpatient (CLI) | payer MEDICARE, OTHER ==
--- NOTE | 2021-04-05 15:32 | RAD ---
CT chest without contrast dated 04/05/2021. COMPARISON: 07/20/2020. Clinical data indication: Follow-up pulmonary nodule TECHNIQUE: Contiguous axial imaging the chest performed without the administration of intravenous contrast. One or more of the following individualized dose reduction techniques were utilized for this examinat ion: 1. Automated exposure control 2. Adjustment of the mA and/or kV according to patient size 3. Use of iterative reconstruction technique. FINDINGS: Heart size is upper limits of normal. Tiny pericardial effusion. Scattered coronary calcifications. M ild ectasia of the ascending thoracic aorta measuring 3.8 cm transverse diameter. There are nonpathol ogic enlarged mediastinal lymph nodes, unchanged. Thyroid gland unremarkable. Surgical clips at the r ight breast and right axilla. No axillary or supraclavicular lymphadenopathy. Central airways are patent. Moderate emphysema. There are patchy and linear opacities at the posterio r lateral aspect of the right middle lobe, new from prior study. A noncalcified pulmonary nodule in t he right lower lobe posteriorly on image 205 measures 6 mm, unchanged. There are additional pulmonary nodule or mass. No pleural effusion. Previously described patchy groundglass opacity in the posterio r right lower lobe is no longer present. Limited images of the upper abdomen are unremarkable. Gallbladder surgically absent. No acute bony abnormality. Multilevel spondylosis. IMPRESSION: 1. Noncalcified pulmonary nodule of the right lower lobe, nonspecific but unchanged from prior study. Continued follow-up imaging to ensure stability. 2. There is a new area of patchy and linear opacity at the peripheral aspect of the right middle lobe , also indeterminate but probably inflammatory. This could also be followed on subsequent exams. 3. Previously described groundglass opacity in the right lower lobe has resolved. 4. Emphysema. Electronically signed by: Mickey Shafer MD (04/05/2021 3:29 PM) [facility]
== END ==
LOC: CT 10:41
PROVIDERS: ATTEND Internal Medicine Pulmonary Disease
DX: R91.1 Solitary pulmonary nodule (principal); J43.9 Emphysema, unspecified; I31.3 Pericardial effusion (noninflammatory); I25.10 Atherosclerotic heart disease of native coronary artery without angina pectoris; I77.810 Thoracic aortic ectasia; R59.0 Localized enlarged lymph nodes; M47.814 Spondylosis without myelopathy or radiculopathy, thoracic region; Z90.49 Acquired absence of other specified parts of digestive tract
CPT/HCPCS: 71250